=== PATIENT | female | born 1960 ===

== ENCOUNTER 2025-10-19 11:03 | Inpatient (IN) | payer OTHER, SELFPAY ==
[2025-10-19] VITALS (39 sets, daily range): BP systolic 93–123; BP diastolic 56–90; PULSE 76–175; RESP 18–38; TEMP 36.4–36.9; O2SAT 90–98; BMI 29.7
--- NOTE | ~2025-10-19 | XR_ITS ---
EXAMINATION: XR CHEST 2 VIEWS HISTORY: CP COMPARISON: There are no prior studies available for comparison. FINDINGS: PA and lateral views of the chest are submitted. There is confluent airspace opacity in the right lower lobe, concern for pneumonia. The left lung is clear. There is no pleural effusion, pneumothorax, or pulmonary vascular congestion. The heart is normal in size. The bones are intact. XR/XR chest 2V IMPRESSION: Right lower lobe pneumonia. Follow-up is recommended to document resolution. Electronically signed by: Bharat Santana MD 10/19/2025 11:59 AM [place]
--- NOTE | ~2025-10-19 | CT_ITS ---
EXAMINATION: CT ANGIOGRAM CHEST CLINICAL INFORMATION: Shortness of breath and hypoxia. Rule out pulmonary embolus. COMPARISON: No prior CT. Chest radiograph earlier same day. TECHNIQUE: Multiple axial images were obtained through the chest after the administration of 65 mL of Omnipaque 350 intravenous contrast. Extensive vascular post-processing including two-dimensional and three-dimensional reformatted images were created and reviewed on an independent workstation. This CT examination was performed using dose optimization techniques as appropriate, variously including the following: *Automated exposure control *Adjustment of mA and/or kV according to patient size (this includes techniques or standardized protocols for targeted exams where dose is matched to indication/reason for exam; i.e. extremities or head) *Use of iterative reconstruction technique FINDINGS: There is diagnostic opacification of the pulmonary arterial system with contrast. There is moderate motion degradation particularly on the inferior regions of the scan, creating artifact and mildly limiting the examination. VASCULAR: There is no definitive filling defect within the pulmonary arterial system to suggest pulmonary embolus. There are apparent likely artifactual defects present in the bilateral lower lobe subsegmental pulmonary arteries where there is extensive motion artifact. I feel these are attributable to artifact as opposed to actual pulmonary embolus. Main pulmonary artery is mildly prominent, measuring a diameter of 3.1 cm. The aorta is nonaneurysmal, normal in caliber and course, with mild atheromatous plaque. No acute aortic syndrome. The great vessels branch normally and are patent. The heart size is minimally enlarged. There is a tiny/trace pericardial effusion. There is moderate to heavy coronary calcification. There is no right heart strain pattern. No contrast reflux into the hepatic veins although there is mild reflux into the IVC, likely indicating increased right pulmonary pressures. LUNGS: / There is extensive consolidation throughout the right lower lobe in keeping with pneumonia. There are air bronchograms present. There is no effusion present. There is subtle patchy area bronchial opacities in the posterior left lower lobe also infectious in etiology. There is underlying mild to moderate centrilobular emphysema. There is minimal opacity in the right middle lobe. There is extensive small airway thickening, in keeping with bronchitis/inflammatory airways disease. There is no pneumothorax. There is no significant pulmonary nodule allowing for underlying respiratory motion artifact and underlying parenchymal disease. PLEURA: There is no pleural effusion. No pleural mass or thickening. MEDIASTINUM: The central airways are patent. Partial expiratory appearance of the trachea with partial inward bowing of the posterior membrane. There are mildly prominent lymph nodes within the central mediastinum, AP window region and pretracheal region, measuring up to 9 mm in short axis although there is preservation of fatty ghassan. These are likely reactive. There is a 1.1 cm subcarinal lymph node, and there is a 1.3 cm right hilar lymph node. The esophagus is diffusely mildly patulous. There is a moderate-sized paraesophageal hernia at the GE junction. AXILLA/CHEST WALL: No mass or abnormal lymph nodes are present. UPPER ABDOMEN: Imaged upper abdominal contents demonstrate a hypoattenuating 1.3 cm focus in segment 4A of the liver, entirely nonspecific. In addition there is an 11 mm hypoattenuating focus in segment 2, and in 11 mm hypoattenuating focus in segment 3. There is diffuse fatty infiltration of the liver. There has been a cholecystectomy. Moderate to large sized paraesophageal hiatus hernia. There is a 3.1 x 3.3 cm mass within the right adrenal, measuring approximately 35 Hounsfield units, nonspecific but statistically likely a lipid poor adenoma. OSSEOUS STRUCTURES: There is no suspicious lytic or blastic bone lesion identified. There are mild degenerative changes throughout the spine. CT/CT angio chest PE protocol IMPRESSION: 1. Exam limited by moderate respiratory motion artifact. There is no central or segmental pulmonary embolus. Subsegmental emboli in the lower lobes would be difficult to exclude although apparent filling defects appearance favor motion artifact on the imaging. 2. There is no aortic aneurysm. There is no acute aortic syndrome. 3. Extensive consolidation of the right lower lobe with air bronchograms. Subtle patchy peribronchial opacities also present in the right middle lobe, and posterior left lower lobe. Findings are in keeping with multifocal pneumonia. There is no effusion. 4. There is underlying mild to moderate emphysema. 5. There are mildly enlarged central mediastinal and right hilar lymph nodes, presumably reactive given the process within the right lung. 6. There is an indeterminant mass in the right adrenal gland measuring 3.1 x 3.3 cm, statistically an adenoma although indeterminate. Correlation with any prior imaging is recommended. Otherwise, recommend dedicated outpatient cross-sectional imaging when the patient is able. 7. There is diffuse fatty infiltration of the liver. There are 3 indeterminate liver lesions present measuring up to 1.3 cm, entirely nonspecific, again, correlation with any prior imaging is recommended. Otherwise, recommend dedicated outpatient cross-sectional imaging when the patient is able. 8. There are additional ancillary findings as discussed in the body of the report. Electronically signed by: Júnior Felipe MD 10/19/2025 02:25 PM [facility]
--- NOTE | 2025-10-19 11:05 | ECG_ITS ---
Test Reason : cp Blood Pressure : */* mmHG Vent. Rate : 113 BPM Atrial Rate : 113 BPM P-R Int : 122 ms QRS Dur : 90 ms QT Int : 312 ms P-R-T Axes : 63 -75 53 degrees QTcB Int : 427 ms Sinus tachycardia with Premature supraventricular complexes Left axis deviation Pulmonary disease pattern Abnormal ECG No previous ECGs available Referred By: Generic ED Physician Electronically Signed By: HECTOR SUAREZ MD
[2025-10-19 11:33] LABS: Hematocrit 42.6 % (37.0-47.0); Hemoglobin 14.0 g/dl (12.0-16.0); Mean Corpuscular HGB Conc 32.9 g/dl (31.0-35.0); Mean Corpuscular Hemoglobin 28.9 pg (27.0-33.0); Mean Corpuscular Volume 87.8 fL (80.0-98.0); NRBC Abs Auto 0.000 X10*3/uL (0.0-0.012); NRBC Pct Auto 0.0 /100WBC (0.0-0.2); Platelet Count 226 X10*3/uL (160-400); Red Blood Count 4.85 X10*6/uL (4.20-5.50); WBC ABN SCTR FOR CBC 1; White Blood Count 14.8 X10*3/uL (4.8-10.8)
--- NOTE | 2025-10-19 11:38 | ED_ITS ---
HPI - Chest Pain General Chief Complaint: Chest Pain Stated Complaint: chest pain Time Seen by Provider: 10/19/25 12:01 Source: patient Mode of arrival: ambulatory Limitations: no limitations History of Present Illness ED Provider: Dr. Borges HPI narrative: 64-year-old female history of emphysema presented to ER today for evaluation for increased shortness of breath and cough that started on Thursday. Patient has recently traveled from [place] it was here since Thursday. She has not complain of any fever however she states she has been having some diarrhea no abdominal pain. Recent cholecystectomy back in September. However she is having increased shortness of breath when she exerted herself. No chest pain Related Data Allergies Allergy/AdvReac Type Severity Reaction Status Date / Time Penicillins (PCN) Allergy Rash Verified 10/19/25 11:44 Review of Systems 2 Review of Systems: Pertinent review of systems as mentioned in HPI. All other system otherwise negative. [facility] Past Medical History [facility] Narrative: Emphysema, cholecystectomy Social History Social History Advance Directives: No Advance Directives Information Provided: No Physical Exam 2 Exam: Exam: General: Pleasant, no distress, interacting appropriately Head: Normacephalic, atraumatic ENT: oral mucosa moist, neck supple, no tracheal deviation Cardiovascular: Tachycardic rate, regular rhythm, no murmurs, rubbing, gallops Respiratory: Diminished lung sounds bilaterally does appear to be tachypneic Gastrointestinal: Soft, non distended, non tender, non guarding Extremities: No limb pain or swelling, no calf tenderness Neurological: Awake and alert, no facial droop noted Skin: Warm and dry Psychiatric: Appropriate mood and thoughts Vital Signs: Vital Signs: Last Vital Signs Temp 97.6 F 10/19/25 14:42 Pulse 121 H 10/19/25 15:14 Resp 26 H 10/19/25 14:42 BP 117/71 10/19/25 15:14 Pulse Ox 94 10/19/25 14:42 O2 Del Method Nasal Cannula 10/19/25 14:42 O2 Flow Rate 2 10/19/25 14:42 BMI result Body Mass Index 29.7 Course Course Course Narrative: This is an RME: Additional HPI, ROS, PE not included below will be deferred to primary provider. RME assessment and note performed by: Kasey Oreilly PA-C This is a 41-[id number] speaking female, with a hx of emphysema, and cardiac arrythmia who presents to the ER with concerns for SOB with ambulation, abdominal pain x 3 days. No nausea or vomiting. Some diarrhea. Reporting elevated heart rate. Recently traveled from [place], landed on thursday. On bumex, spirolactone. No fevers. Plan: Labs, CXR, viral swabs Medications Administered Discontinued Medications Generic Name Dose Route Start Last Admin Trade Name Freq PRN Reason Stop Dose Admin Albuterol Sulfate 2.5 mg/ 0 mg 10/19/25 12:54 10/19/25 12:59 Albuterol/Ipratropium 3 ml INHALE 10/19/25 12:55 5 dose ONCE ONE Administration Diltiazem HCl 15 mg 10/19/25 14:00 10/19/25 14:14 Diltiazem Hcl 50 Mg/10 Ml Vial IVPUSH 10/19/25 14:01 15 mg ONCE ONE Administration Diltiazem HCl 28 mg 10/19/25 14:28 10/19/25 14:34 Diltiazem Hcl 50 Mg/10 Ml Vial IVPUSH 10/19/25 14:29 28 mg ONCE ONE Administration Diltiazem HCl 60 mg 10/19/25 14:54 10/19/25 15:14 Diltiazem Hcl 60 Mg Tablet PO 10/19/25 14:55 60 mg ONCE ONE Administration Protocol Lactated Ringer's 1,000 mls @ 999 mls/hr 10/19/25 12:15 10/19/25 13:27 Lr IV 10/19/25 13:15 Infused .Q1H1M ROSENDA Infusion Levofloxacin 750 mg in 150 mls @ 100 mls/hr 10/19/25 12:19 10/19/25 13:56 Levaquin IV 10/19/25 13:48 Infused ONCE ONE Infusion Lactated Ringer's 1,000 mls @ 999 mls/hr 10/19/25 12:45 10/19/25 14:39 Lr IV 10/19/25 14:09 Not Given .Q1H1M ROSENDA Lactated Ringer's 2,358 mls @ 2,358 mls/hr 10/19/25 14:31 10/19/25 15:40 Lr 30 ml/kg infuse over 1 hr (2358 ml) 10/19/25 15:30 Infused IV Infusion .Q1H ONE Iohexol 100 ml 10/19/25 13:56 10/19/25 13:57 Iohexol 350 Mg/Ml 100 Ml Infus..Btl IV 10/19/25 13:57 65 ml ONCE ONE Administration Medical Decision Making Medical Decision Making [facility] Narrative: 64-year-old female history of emphysema presented hospital today for increased shortness of breath coughing since Thursday. On x-ray it appears that she does have right-sided pneumonia. She does have signs of leukocytosis with tachycardia. She is satting at 90% on room air. Nasal cannula applied to the patient. Blood pressure stable at this time. Patient does meet sepsis criteria. We will activate sepsis for the patient. She does have allergy to penicillin so IV Levaquin will be ordered for the patient. Given her recent travel to [place] and shortness of breath and tachycardia. We will plan to obtain a CTA chest to rule out PE. A bolus IV fluid will be initiated for the patient No signs of pulmonary embolism identified on CTA of the chest. Chest x-ray did show right-sided pneumonia. Patient was ambulated in the ER here and went into AFib RVR. Give patient 2 IV pushes of diltiazem. Kaveh this with p.o. diltiazem 60 mg. Heart rate maintaining no of 120s. Patient will be admitted to the hospital. She does have leukocytosis with bandemia. Elevated lactic acid as well. Patient is unable to specify exactly what cardiac arrhythmia she has. Suspect this is likely AFib. The patient will be admitted to the hospital. Differential Diagnosis Differential Diagnoses: The differential diagnosis associated with the presentation includes Sepsis, COPD exacerbation, pneumonia, PE Lab Data [facility] Lab Attestation statement: I reviewed the patient's lab results. 10/19/25 11:22 10/19/25 11:22 Labs: Lab Results 10/19/25 10/19/25 10/19/25 Range/Units 11:21 11:22 12:21 WBC 14.8 H (4.8-10.8) X10*3/uL RBC 4.85 (4.20-5.50) X10*6/uL Hgb 14.0 (12.0-16.0) g/dl Hct 42.6 (37.0-47.0) % MCV 87.8 (80.0-98.0) fL MCH 28.9 (27.0-33.0) pg MCHC 32.9 (31.0-35.0) g/dl RDW 14.4 (11.0-16.0) % Plt Count 226 (160-400) X10*3/uL MPV 10.1 (9.4-12.3) fL Immature Gran % (Auto) Cancelled Neut % (Auto) Cancelled Lymph % (Auto) Cancelled [place] % (Auto) Cancelled Eos % (Auto) Cancelled Baso % (Auto) Cancelled Lymph # (Auto) Cancelled [place] # (Auto) Cancelled Eos # (Auto) Cancelled Baso # (Auto) Cancelled Abs Immat Gran (auto) Cancelled Absolute Neuts (auto) Cancelled Absolute Nucleated RBC 0.000 (0.0-0.012) X10*3/uL Nucleated RBC % (auto) 0.0 (0.0-0.2) /100WBC Neutrophils % (Manual) 64 (45-73) % Band Neutrophils % 10 H (3-5) % Lymphocytes % (Manual) 20 (20-40) % Atypical Lymphs % (Man) 2 (0-6) % Monocytes % (Manual) 4 (2-11) % Abs Neuts (Manual) 11.0 H (2.0-8.3) X10*3/uL Lymphocytes # (Manual) 3.0 (1.2-4.9) X10*3/uL Atyp Lymphs # (Manual) 0.3 x10*3/uL Monocytes # (Manual) 0.6 (0.1-1.2) X10*3/uL Smudge Cells PRESENT Toxic Vacuolation PRESENT Platelet Estimate NORMAL (NORMAL) Large Platelets PRESENT Giant Platelets PRESENT Plt Morphology Comment NOTED RBC Morphology NORMAL Polychromasia 1+ (0-2) /OIF [place] Bodies PRESENT Lazaro Cells 1+ (0-2) /OIF Hold Blue Top SEE NOTE Sodium 135 (135-145) mmol/L Potassium 4.3 (3.3-5.1) mmol/L Chloride 102 (96-108) mmol/L Carbon Dioxide 23 (22-29) mmol/L Anion Gap 14 (12-20) BUN 16 (9-16) mg/dL Creatinine 0.69 (0.5-1.4) mg/dL Estim Creat Clear Calc 81.3 Estimated GFR > 60 Random Glucose 115 (60-115) mg/dL Lactic Acid 2.3 H* (0.5-2.0) mmol/L Lactic Acid F/U @ 2Hr (0.5-2.0) mmol/L Calcium 9.9 (8.4-10.2) mg/dL Total Bilirubin 0.7 (0.0-1.0) mg/dL Direct Bilirubin 0.2 (0.0-0.5) mg/dL AST 29 (5-31) U/L ALT 12 (0-31) U/L Alkaline Phosphatase 83 (39-117) U/L Troponin I High Sens 2.9 (<3.5-17.0) ng/L Total Protein 6.9 (6.5-8.0) g/dL Albumin 3.6 (3.5-5.0) g/dL Influenza Type A (PCR) (Negative) Influenza Type B (PCR) (Negative) RSV RNA Qual (PCR) (Negative) SARS-CoV-2 RNA (RT-PCR) (Negative) 10/19/25 10/19/25 Range/Units 12:24 15:08 WBC (4.8-10.8) X10*3/uL RBC (4.20-5.50) X10*6/uL Hgb (12.0-16.0) g/dl Hct (37.0-47.0) % MCV (80.0-98.0) fL MCH (27.0-33.0) pg MCHC (31.0-35.0) g/dl RDW (11.0-16.0) % Plt Count (160-400) X10*3/uL MPV (9.4-12.3) fL Immature Gran % (Auto) Neut % (Auto) Lymph % (Auto) [place] % (Auto) Eos % (Auto) Baso % (Auto) Lymph # (Auto) [place] # (Auto) Eos # (Auto) Baso # (Auto) Abs Immat Gran (auto) Absolute Neuts (auto) Absolute Nucleated RBC (0.0-0.012) X10*3/uL Nucleated RBC % (auto) (0.0-0.2) /100WBC Neutrophils % (Manual) (45-73) % Band Neutrophils % (3-5) % Lymphocytes % (Manual) (20-40) % Atypical Lymphs % (Man) (0-6) % Monocytes % (Manual) (2-11) % Abs Neuts (Manual) (2.0-8.3) X10*3/uL Lymphocytes # (Manual) (1.2-4.9) X10*3/uL Atyp Lymphs # (Manual) x10*3/uL Monocytes # (Manual) (0.1-1.2) X10*3/uL Smudge Cells Toxic Vacuolation Platelet Estimate (NORMAL) Large Platelets Giant Platelets Plt Morphology Comment RBC Morphology Polychromasia /OIF [place] Bodies Lazaro Cells /OIF Hold Blue Top Sodium (135-145) mmol/L Potassium (3.3-5.1) mmol/L Chloride (96-108) mmol/L Carbon Dioxide (22-29) mmol/L Anion Gap (12-20) BUN (9-16) mg/dL Creatinine (0.5-1.4) mg/dL Estim Creat Clear Calc Estimated GFR Random Glucose (60-115) mg/dL Lactic Acid (0.5-2.0) mmol/L Lactic Acid F/U @ 2Hr 4.3 H* (0.5-2.0) mmol/L Calcium (8.4-10.2) mg/dL Total Bilirubin (0.0-1.0) mg/dL Direct Bilirubin (0.0-0.5) mg/dL AST (5-31) U/L ALT (0-31) U/L Alkaline Phosphatase (39-117) U/L Troponin I High Sens (<3.5-17.0) ng/L Total Protein (6.5-8.0) g/dL Albumin (3.5-5.0) g/dL Influenza Type A (PCR) NEGATIVE (Negative) Influenza Type B (PCR) NEGATIVE (Negative) RSV RNA Qual (PCR) NEGATIVE (Negative) SARS-CoV-2 RNA (RT-PCR) NEGATIVE (Negative) Independent Interpretation I performed an independent interpretation of an: Plain X-Ray Radiology Impression Discussion of test interpretation with radiology: I have reviewed the radiologist's reading. Chronic Conditions Emphysema Critical Care Time Critical Care Time Critical Care Time: Yes Total Critical Care Time: 40 Attestation: Time is exclusive of separately billable procedures. Time includes: direct patient care, patient reassessment, coordination of patient care, interpretation of data (laboratory data, pulse oximetry, arterial blood gases and chest xrays), review of patient's medical records, medical consultation and documentation of patient care. Procedures excluded from critical care time: central intravenous line placement and electrocardiography. Discharge Plan Discharge Clinical Impression: Sepsis, Pneumonia, Atrial fibrillation with RVR Patient Disposition: Admitted As Inpatient Print Language: Kuwaiti
[2025-10-19 11:53] LABS: Anion Gap 14 (12-20); Blood Urea Nitrogen 16 mg/dL (9-16); Calcium 9.9 mg/dL (8.4-10.2); Carbon Dioxide 23 mmol/L (22-29); Chloride 102 mmol/L (96-108); Creatinine Clr Calc Pharmacy 81.3; Estimated Glomerular Filt Rate > 60; Potassium 4.3 mmol/L (3.3-5.1); Sodium 135 mmol/L (135-145)
[2025-10-19 11:58] LABS: Troponin-I High Sensitivity 2.9 ng/L (<3.5-17.0)
[2025-10-19] MEDS: Lactated Ringers 1,000 ML 999 ML IV ×2 (12:26→13:17)
[2025-10-19 12:43] LABS: Neutrophils Percent Manual 64 % (45-73)
[2025-10-19 12:47] LABS: Atypical Lymph Absolute Manual 0.3 x10*3/uL; Atypical Lymphs Percent Manual 2 % (0-6); Band Neutrophils Percent 10 % (3-5); Lymphocytes Absolute Manual 3.0 X10*3/uL (1.2-4.9); Lymphocytes Percent Manual 20 % (20-40); Monocytes Absolute Manual 0.6 X10*3/uL (0.1-1.2); Monocytes Percent Manual 4 % (2-11); Neutrophils Absolute Manual 11.0 X10*3/uL (2.0-8.3)
[2025-10-19 12:48] LABS: Toxic Vacuolation PRESENT
[2025-10-19 12:49] LABS: Alanine Aminotransferase 12 U/L (0-31); Albumin Level 3.6 g/dL (3.5-5.0); Alkaline Phosphatase 83 U/L (39-117); Aspartate Amino Transferase 29 U/L (5-31); Polychromasia 1+ (0-2) /OIF; Smudge Cells PRESENT; Total Protein 6.9 g/dL (6.5-8.0)
[2025-10-19 12:50] LABS: Burr Cells 1+ (0-2) /OIF
[2025-10-19 12:51] LABS: Large Platelet PRESENT; RBC Morphology NORMAL
[2025-10-19] MEDS: Albuterol Sulfate 2.5 MG, Albuterol/Iprat 2.5/0.5MG 3 ML 3 ML INHALE (12:59)
[2025-10-19 13:15] LABS: Resp Syncy Virus RNA Qual PCR NEGATIVE (Negative); SARS COV2 PCR INHOUSE NEGATIVE (Negative)
--- NOTE | 2025-10-19 13:42 | ECG_ITS ---
Test Reason : TACHYCARDIA Blood Pressure : */* mmHG Vent. Rate : 156 BPM Atrial Rate : 156 BPM P-R Int : 122 ms QRS Dur : 84 ms QT Int : 272 ms P-R-T Axes : 43 -86 44 degrees QTcB Int : 438 ms Sinus tachycardia with frequent Premature supraventricular complexes Left axis deviation Low voltage QRS Possible Lateral infarct , age undetermined Inferior infarct , age undetermined Abnormal ECG When compared with ECG of 19-Oct-2025 11:09, Borderline criteria for Lateral infarct are now Present No significant change was found Referred By: Coleen Borges Electronically Signed By: HECTOR SUAREZ MD
[2025-10-19] MEDS: iohexoL 350 MG/ML 100 ML INFUS..BTL IV (13:57)
--- NOTE | 2025-10-19 14:02 | PC.NURSE ---
patient received updraft, during which patient hr had noted to become tachy 110's-140's. patient ambulated to imaging and bathroom, upon returning to bed noted to be 120's-190's. repeat EKG obtained. second IV being placed, plan for cardizem IVpush.
[2025-10-19 14:28] LABS: Reflex Lactate? Lactic Acid Added
--- NOTE | 2025-10-19 14:40 | PC.NURSE ---
hr noted to be between 90-100 at this time s/p second cardizem administration
[2025-10-19 15:40] LABS: ~Lactic Acid-LAB USE ONLY 4.3 mmol/L (0.5-2.0)
--- NOTE | 2025-10-19 16:52 | P.HPHOSP_ITS ---
History of Present Illness Date of Service: 10/19/25 Attending physician on admission: Jay Torres Chief Complaint: shortness of breath This is a 64-year-old female visiting from [place] who presents to the emergency department with shortness of breath. Patient is Kiswahili speaking and history was obtained with the use of the [employer] trans router. Patient reports she came from [place] to visit this past Thursday. She has been having shortness of breath for the past several days. She thinks that her grandchild may have the flu. She has been wheezing and reports a cough productive of dark phlegm. She has been using her inhaler with no significant improvement in her symptoms. She reports increase in fatigue but denies any associated fever or chills. In the emergency department she was tachycardic and tachypneic. Lab work was significant for elevated white blood cell count and lactic acidosis. CTA showed evidence of multifocal pneumonia but no evidence of pulmonary embolism. She was noted to become significantly tachycardic and received multiple doses of IV Cardizem. During her episodes of tachycardia she was reportedly fatigued and dizzy. Her dizziness has since resolved, she denies chest pain or palpitations at this time. She was also treated with IV antibiotics and IVF will be admitted for further management. Review of Systems 2 Review of Systems: Yes all other systems are reviewed and are negative Constitutional: Constitutional: Denies chills and Denies fever(s) [facility] Medical History (Updated 10/19/25 @ 17:16 by DONNY Perez) COPD (chronic obstructive pulmonary disease) Social History Patient Tobacco Use Status: Tobacco use Unknown Advance Directives: No Advance Directives Information Provided: No Meds Allergies Allergy/AdvReac Type Severity Reaction Status Date / Time Penicillins (PCN) Allergy Rash Verified 10/19/25 11:44 Active Medications: Current Medications Acetaminophen (Acetaminophen 325 Mg Tablet) 650 mg PO Q6H PRN PRN Reason: Pain, Mild 1-3,fever,headache Calcium Carbonate (Calcium Carbonate 750 Mg Tab.Chew) 750 mg PO Q4H PRN PRN Reason: Heartburn Enoxaparin Sodium (Enoxaparin Sodium 40 Mg/0.4 Ml Syringe) 40 mg SUBCUT Q24H ROSENDA Magnesium Hydroxide (Milk Of Magnesia 30 Ml Oral.Susp) 30 ml PO DAILY PRN PRN Reason: Constipation Melatonin (Melatonin 3 Mg Tablet) 6 mg PO BEDTIME PRN PRN Reason: Insomnia Sodium Chloride (0.9 % Sodium Chloride Flush 3 Ml Syringe) 3 ml IVFLUSH QSHIFT [facility] Home Medications ?Medication ?Instructions ?Recorded ?Confirmed ?Last Taken ?Type bisoprolol fumarate 2.5 mg tablet 2.5 mg PO DAILY 10/0910/19/25 Unknown History tiotropium 2.5 mcg-olodaterol 2.5 2 puff inhalation DA EMILY 10/19/25 10/19/25 Unknown History mcg/actuation mist for inhalation (Stiolto Respimat) Physical Exam 2 Vital Signs and Narrative: Vital Signs: Last Vital Signs Temp 97.6 F 10/19/25 14:42 Pulse 113 H 10/19/25 15:45 Resp 22 H 10/19/25 15:45 BP 117/66 10/19/25 16:25 Pulse Ox 95 10/19/25 15:45 O2 Del Method Nasal Cannula 10/19/25 15:45 O2 Flow Rate 2 10/19/25 15:45 BMI result Body Mass Index 29.7 Const: General: cooperative, comfortable, alert and awake Nutritional Appearance: average body habitus Orientation/consciousness: patient oriented x3 Resp: Other: b/l wheeze; tachypnea Effort & Inspection: normal respiratory effort, able to speak in complete sentences and no use of accessory muscles Cardio: Rate: tachycardic GI: Inspection: No distended Palpation (GI): Soft to palpation Neuro: General: patient oriented x3, moves all extremities and CN's II-XI intact bilaterally Extrem: General: Yes pedal edema Results Labs 10/20/25 03:30 10/20/25 03:30 Labs: Laboratory Results - last 24 hr 10/19/25 10/19/25 10/19/25 11:21 11:22 12:21 MCV 87.8 MCH 28.9 MCHC 32.9 RDW 14.4 Plt Count 226 MPV 10.1 Immature Gran % (Auto) Cancelled Neut % (Auto) Cancelled Lymph % (Auto) Cancelled [place] % (Auto) Cancelled Eos % (Auto) Cancelled Baso % (Auto) Cancelled Lymph # (Auto) Cancelled [place] # (Auto) Cancelled Eos # (Auto) Cancelled Baso # (Auto) Cancelled Abs Immat Gran (auto) Cancelled Absolute Neuts (auto) Cancelled Absolute Nucleated RBC 0.000 Nucleated RBC % (auto) 0.0 Neutrophils % (Manual) 64 Band Neutrophils % 10 H Lymphocytes % (Manual) 20 Atypical Lymphs % (Man) 2 Monocytes % (Manual) 4 Abs Neuts (Manual) 11.0 H Lymphocytes # (Manual) 3.0 Atyp Lymphs # (Manual) 0.3 Monocytes # (Manual) 0.6 Smudge Cells PRESENT Toxic Vacuolation PRESENT Platelet Estimate NORMAL Large Platelets PRESENT Giant Platelets PRESENT Plt Morphology Comment NOTED RBC Morphology NORMAL Polychromasia 1+ (0-2) [place] Bodies PRESENT Lazaro Cells 1+ (0-2) Hold Blue Top SEE NOTE Anion Gap 14 Estim Creat Clear Calc 81.3 Estimated GFR > 60 Random Glucose 115 Lactic Acid 2.3 H* Lactic Acid F/U @ 2Hr Calcium 9.9 Total Bilirubin 0.7 Direct Bilirubin 0.2 AST 29 ALT 12 Alkaline Phosphatase 83 Troponin I High Sens 2.9 Total Protein 6.9 Albumin 3.6 Influenza Type A (PCR) Influenza Type B (PCR) RSV RNA Qual (PCR) SARS-CoV-2 RNA (RT-PCR) 10/19/25 10/19/25 12:24 15:08 MCV MCH MCHC RDW Plt Count MPV Immature Gran % (Auto) Neut % (Auto) Lymph % (Auto) [place] % (Auto) Eos % (Auto) Baso % (Auto) Lymph # (Auto) [place] # (Auto) Eos # (Auto) Baso # (Auto) Abs Immat Gran (auto) Absolute Neuts (auto) Absolute Nucleated RBC Nucleated RBC % (auto) Neutrophils % (Manual) Band Neutrophils % Lymphocytes % (Manual) Atypical Lymphs % (Man) Monocytes % (Manual) Abs Neuts (Manual) Lymphocytes # (Manual) Atyp Lymphs # (Manual) Monocytes # (Manual) Smudge Cells Toxic Vacuolation Platelet Estimate Large Platelets Giant Platelets Plt Morphology Comment RBC Morphology Polychromasia [place] Bodies Lazaro Cells Hold Blue Top Anion Gap Estim Creat Clear Calc Estimated GFR Random Glucose Lactic Acid Lactic Acid F/U @ 2Hr 4.3 H* Calcium Total Bilirubin Direct Bilirubin AST ALT Alkaline Phosphatase Troponin I High Sens Total Protein Albumin Influenza Type A (PCR) NEGATIVE Influenza Type B (PCR) NEGATIVE RSV RNA Qual (PCR) NEGATIVE SARS-CoV-2 RNA (RT-PCR) NEGATIVE Imaging Radiologist's Impressions: Impressions Chest X-Ray 10/19/25 11:53 IMPRESSION: Right lower lobe pneumonia. Follow-up is recommended to document resolution. Electronically signed by: Bharat Santana MD 10/19/2025 11:59 AM EST RP Chest CTA 10/19/25 13:28 IMPRESSION: 1. Exam limited by moderate respiratory motion artifact. There is no central or segmental pulmonary embolus. Subsegmental emboli in the lower lobes would be difficult to exclude although apparent filling defects appearance favor motion artifact on the imaging. 2. There is no aortic aneurysm. There is no acute aortic syndrome. 3. Extensive consolidation of the right lower lobe with air bronchograms. Subtle patchy peribronchial opacities also present in the right middle lobe, and posterior left lower lobe. Findings are in keeping with multifocal pneumonia. There is no effusion. 4. There is underlying mild to moderate emphysema. 5. There are mildly enlarged central mediastinal and right hilar lymph nodes, presumably reactive given the process within the right lung. 6. There is an indeterminant mass in the right adrenal gland measuring 3.1 x 3.3 cm, statistically an adenoma although indeterminate. Correlation with any prior imaging is recommended. Otherwise, recommend dedicated outpatient cross-sectional imaging when the patient is able. 7. There is diffuse fatty infiltration of the liver. There are 3 indeterminate liver lesions present measuring up to 1.3 cm, entirely nonspecific, again, correlation with any prior imaging is recommended. Otherwise, recommend dedicated outpatient cross-sectional imaging when the patient is able. 8. There are additional ancillary findings as discussed in the body of the report. Electronically signed by: Júnior Felipe MD 10/19/2025 02:25 PM EST RP Assessment and Plan (1) Pneumonia: Qualifiers: Laterality: right Lung location: lower lobe of lung Pneumonia type: d ue to unspecified organism Qualified Code(s): J18.9 - Pneumonia, unspecified organism Status: Acute Plan This is a 64-year-old female with a history of COPD and unspecified arrhythmia visiting from [place] who presents to the emergency department with shortness of breath found to have pneumonia Sepsis due to Multifocal pneumonia received 33cc/kg fluid bolus lactic acid trending up possibly due to breathing treatments and tachycardia IV Levaquin follow blood cultures acute exacerbation of COPD IV steroids prn xopenex supplemental oxygen as needed to keep o2 saturation above 90% tachcycardia EKG not c/w atrial fibrillation seems like sinus tachy likely due to underlying breathing treatment and infection has h/o arrhthmia and takes what seems to be a BB at baseline does not use blood thinner at baseline monitor on telemetery, if any episodes of afib are observed can consider obtaining an echo dvt ppx - lovenox Patient will likely require 2 midnight stay in the hospital for management of COPD exacerbation, multifocal pneumonia requiring IV antibiotics and close monitoring of respiratory status Quality Stroke Does the patient have a stroke diagnosis?: No VTE Prior VTE?: No VTE Risk Level:: Medical - moderate - high VTE Device Contraindication: N/A - Device Ordered VTE Drug Contraindication: N/A - Med Ordered
[2025-10-19 17:12] LABS: Reflex Lactate? 2 Y
[2025-10-19 17:54] LABS: ~Lactic Acid-LAB USE ONLY 2.5 mmol/L (0.5-2.0)
[2025-10-19 18:02] LABS: Cancel Lactic Acid Canceled
--- NOTE | 2025-10-19 20:07 | PC.NURSE ---
assumed care of pt, pt found alert in bed on nasal cannula w/ a rapid HR, MD notified of HR. VS taken and as noted awaiting new orders.
[2025-10-19 20:39] LABS: Magnesium 1.9 mg/dL (1.6-2.6)
--- NOTE | 2025-10-19 20:42 | PC.NURSE ---
Dilt drip started at this time per mar
--- NOTE | 2025-10-19 21:24 | PHA.MEDREC ---
Pharmacy Consult ? Medication Reconciliation Pharmacy has completed the medication reconciliation. [place] [employer] retirement actuary needed, family member at bedside with a list of medications from a pharmacy source that needed to be translated, allowed me to take a picture for confirmation. He said she only takes two medications, her inhaler and her beta shakeel
--- NOTE | 2025-10-19 21:44 | PM.EVENT ---
Event Note Date of Service: 10/20/25 Event Note: Pt in AFIB RVR, 140's worse with exertion. Pt has received cardizem IVP X2 and now starting IV infusion. BP stable. LA elevated, starting fluids. Gave one dose of 2.5 lopressor with good effect, currently AFIB, rate 99. Periwick will be placed to reduce need to ambulate that promotes RVR. MG 1.9, 1 gm of mg administered to keep MG above 2.0. TSH pending. Pt started on weight based lovenox for AC. 0450 Pt currently in NSR on cardizem infusion at 5 mls per hour. Pt has fared well on infusion, will allow to continue until seen by Cardiology. Consult ordered and echo requested. Time Spent With Patient Time: Total time managing care of this patient today ____ minutes.
[2025-10-19 22:21] LABS: Appearance Urine Clear; Glucose Urine UA Negative (Negative); PH 6.0 (5.0-9.0); Specific Gravity - Urine 1.015 (1.005-1.025); UMIC TRIGGER UA YES
--- NOTE | 2025-10-19 22:28 | PC.NURSE ---
pt assisted to bedside commode, voided 500ml yellow urine, sample obtained.
--- NOTE | 2025-10-19 23:13 | PC.NURSE ---
pt heart rate noted to be maintaining below 100bpm, BATCH ROOM TECHNICIAN Janey aware and states to keep pt on dilt drip at this time at 5mg/hr.
[2025-10-19 23:25] LABS: Hematocrit 37.0 % (37.0-47.0); Hemoglobin 12.2 g/dl (12.0-16.0); Mean Corpuscular HGB Conc 33.0 g/dl (31.0-35.0); Mean Corpuscular Hemoglobin 28.8 pg (27.0-33.0); Mean Corpuscular Volume 87.5 fL (80.0-98.0); NRBC Abs Auto 0.000 X10*3/uL (0.0-0.012); NRBC Pct Auto 0.0 /100WBC (0.0-0.2); Platelet Count 237 X10*3/uL (160-400); Red Blood Count 4.23 X10*6/uL (4.20-5.50); White Blood Count 13.5 X10*3/uL (4.8-10.8)
[2025-10-19 23:36] LABS: Blood Urea Nitrogen 11 mg/dL (9-16); Creatinine Clr Calc Pharmacy 98.4; Estimated Glomerular Filt Rate > 60
[2025-10-20] VITALS (12 sets, daily range): BP systolic 102–161; BP diastolic 68–90; PULSE 71–105; RESP 18–22; TEMP 36.3–37; O2SAT 94–99
--- NOTE | 2025-10-20 | ECG_ITS ---
Test Reason : RHYTHM CHANGE Blood Pressure : */* mmHG Vent. Rate : 85 BPM Atrial Rate : 85 BPM P-R Int : 142 ms QRS Dur : 92 ms QT Int : 356 ms P-R-T Axes : 65 -42 40 degrees QTcB Int : 423 ms Sinus rhythm with Premature atrial complexes Left axis deviation Low voltage QRS Incomplete right bundle branch block Abnormal ECG When compared with ECG of 19-Oct-2025 13:46, Vent. rate has decreased by 71 bpm Borderline criteria for Lateral infarct are no longer Present Referred By: Janey Simon Electronically Signed By: HECTOR SUAREZ MD
[2025-10-20 03:54] LABS: Hematocrit 36.1 % (37.0-47.0); Hemoglobin 11.8 g/dl (12.0-16.0); Mean Corpuscular HGB Conc 32.7 g/dl (31.0-35.0); Mean Corpuscular Hemoglobin 28.6 pg (27.0-33.0); Mean Corpuscular Volume 87.6 fL (80.0-98.0); NRBC Abs Auto 0.000 X10*3/uL (0.0-0.012); NRBC Pct Auto 0.0 /100WBC (0.0-0.2); Platelet Count 247 X10*3/uL (160-400); Red Blood Count 4.12 X10*6/uL (4.20-5.50); WBC ABN SCTR FOR CBC 1
[2025-10-20 04:13] LABS: Anion Gap 12 (12-20); Blood Urea Nitrogen 11 mg/dL (9-16); Calcium 9.0 mg/dL (8.4-10.2); Carbon Dioxide 22 mmol/L (22-29); Chloride 108 mmol/L (96-108); Creatinine Clr Calc Pharmacy 105.9; Estimated Glomerular Filt Rate > 60; Potassium 3.7 mmol/L (3.3-5.1); Sodium 138 mmol/L (135-145)
--- NOTE | 2025-10-20 04:54 | PC.NURSE ---
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
[2025-10-20 05:26] LABS: Band Neutrophils Percent 3 % (3-5); Lymphocytes Percent Manual 1 % (20-40); Monocytes Percent Manual 2 % (2-11); Neutrophils Percent Manual 94 % (45-73)
[2025-10-20 05:27] LABS: Burr Cells 3+ (>5) /OIF; Lymphocytes Absolute Manual 0.1 X10*3/uL (1.2-4.9); Monocytes Absolute Manual 0.3 X10*3/uL (0.1-1.2); Neutrophils Absolute Manual 12.1 X10*3/uL (2.0-8.3); RBC Morphology NOTED; Toxic Granulation PRESENT; White Blood Count 12.5 X10*3/uL (4.8-10.8)
--- NOTE | 2025-10-20 07:00 | CA_ITS ---
Transthoracic Echocardiogram Patient (Last, First, Middle): Lucy Beebe, Gender: F Date of : 1960 Age: 64 Procedure Date: 10/20/2025 Procedure Type: Transthoracic Echocardiogram Location: ER Height: 162.56 cm Weight: 78.47 kg BSA: 1.84 m2 Heart Rate: 81 bpm BP: 118 / 82 mmHg Manager Non Profit: TO Referring MD: Janey Simon [facility] Child Development Specialist: Neal Menchaca MD Symptoms: AFIB RVR Study Quality: Adequate w contrast ECG Rhythm: Sinus with PACs Conclusions: - 1. Technically limited study 2. Mildly reduced LV ejection fraction 45-50% with impaired relaxation filling pattern 3. Cardiac valvular Dopplers within normal limits Findings Procedure Information Contrast agent, definity, is being given per protocol without apparent complications. Left Ventricle Normal left ventricular cavity size. There is normal left ventricular wall thickness. The left ventricular systolic function is mildly decreased. The visually estimated ejection fraction is between 45-50%. Spectral Doppler is indicative of an impaired relaxation filling pattern. E/E prime ratio is between 8 and 15 consistent with indeterminate filling pressures. Right Ventricle Normal right ventricular cavity size and systolic function. Atria The left atrium is likely dilated. Interatrial shunt cannot be excluded. The right atrium was not well visualized. Aortic Valve The aortic valve was not well visualized. There is no aortic valve stenosis. There is no aortic valve regurgitation. Mitral Valve Likely normal mitral valve structure and function. There is trace mitral valve regurgitation. There is no mitral valve stenosis. Pulmonic Valve The pulmonic valve was not well visualized. Tricuspid Valve The tricuspid valve was not well visualized. Tricuspid regurgitation envelope is inadequate for calculation of right ventricular systolic pressure. Indeterminate right atrial pressure. Great Vessels The aorta was not well visualized. The pulmonary artery was not well visualized. Venous The inferior vena cava was not well visualized. Pericardium/Pleural The pericardium was not well visualized. Prior Study Comparison No prior study available for comparison. Measurements 2D Linear Measurements IVSd: 1.05 0.6-0.9/0.6-1.0 cm LVIDd: 4.66 3.9-5.3/4.2-5.9 cm LVIDd Index: 2.53 2.4-3.2/2.2-3.1 cm/m2 LVIDs: 3.54 2.0-3.6 cm LVPWd: 0.90 0.7-1.1 cm LV Mass: 194.43 67-162/88-224 g LV Mass Index: 105.67 43-95/49-115 g/m2 LVOT Diam: 2.50 3.0+(-)1.3 cm 2D Systolic Function EF 4C: 51.70 >55% EF 2C: 43.50 >55% EF BiP: 46.50 >55% Mitral Valve MV Pk E: 0.64 MV PK A: 0.48 MV Decel Time: 160.00 E/A: 1.30 E'Lateral: 12.70 E'Medial: 5.87 E/E' Med: 10.90 E/E' Lat: 5.00 PHT: 47.00 MVA PHT: 4.68 Decel [place]: 4.00 Aortic Valve AoV Pk Crispin: 1.28 AoV Mn Crispin: 0.93 AoV VTI: 0.23 AoV Pk Grad: 7.00 Aov Mn Grad: 4.00 BIANCA Cont.VTI: 4.50 LVOT LVOT Pk Crispin: 1.06 LVOT Mn Crispin: 0.71 LVOT VTI: 0.21 LVOT Pk Grad: 4.00 LVOT Mn Grad: 2.00 LVOT Diam: 2.50 LVOT Area: 4.91 Diastolic Function MV Pk E: 0.64 MV Pk A: 0.48 E/A: 1.30 E'Medial: 5.87 E/E' Med: 10.90 E' Laterial: 12.70 E/E' Lat: 5.00 Right Ventricle TAPSE (mm): 17.50 TVS' Crispin: 15.40 Great Vessels Aorta Sinus of Valsalva: 3.47 2.0-3.5 cm Ao Asc: 3.50 2.1-3.4 cm Updated in Other Vendor System with Status of Final Neal Menchaca MD electronically signed on 10/20/2025 4:06:41 PM with status of Final
[2025-10-20 07:57] LABS: Magnesium 2.0 mg/dL (1.6-2.6)
[2025-10-20] MEDS: Potassium Chloride ER 20 MEQ TAB.ER.PRT PO (08:42)
--- NOTE | 2025-10-20 09:18 | P.PNIM_ITS ---
Subjective Subjective Date of Service: 10/20/25 Interval History: gram positive bactermia pneumonia Review of Systems sob and cough similar Review of Systems: Yes all other systems are reviewed and are negative Physical Exam 2 Exam: Exam: Appearance: Alert.? Oriented X3.? cvs: rrr, [id number] . res: air entry diminshed . abd: no rebound or guarding ,nt, bs present. ext pulses present , no cyanosis . neuro: axo3 , nonfocal. Vital Signs: Vital Signs: Last Vital Signs Temp 97.4 F 10/20/25 04:02 Pulse 95 10/20/25 08:46 Resp 20 10/20/25 08:09 BP 161/75 H 10/20/25 08:46 Pulse Ox 95 10/20/25 04:02 O2 Del Method Nasal Cannula 10/20/25 04:02 O2 Flow Rate 2 10/20/25 04:02 BMI result Body Mass Index 29.7 Objective Data Active Medications Acetaminophen (Acetaminophen 325 Mg Tablet) 650 mg PO Q6H PRN PRN Reason: Pain, Mild 1-3,fever,headache Bisoprolol Fumarate (Bisoprolol Fumarate 5 Mg Tablet) 2.5 mg PO DAILY [facility] Calcium Carbonate (Calcium Carbonate 750 Mg Tab.Chew) 750 mg PO Q4H PRN PRN Reason: Heartburn Enoxaparin Sodium (Enoxaparin Sodium 40 Mg/0.4 Ml Syringe) 40 mg SUBCUT Q24H [facility] Last Admin: 10/19/25 18:46 Dose: 40 mg Documented By: CHAU Guaifenesin/Dextromethorphan (Guaifenesin Dm 100/10/5 Ml 5 Ml Syrup) 5 ml PO Q6H PRN PRN Reason: Cough Levofloxacin (Levaquin) 750 mg in 150 mls @ 100 mls/hr IV Q24H [facility] Sodium Chloride (Ns) 1,000 mls @ 100 mls/hr IVCONT .Q10H [facility] Last Admin: 10/20/25 08:42 Dose: 100 mls/hr Documented By: LEVON Levalbuterol HCl (Levalbuterol Hcl 1.25 Mg/3 Ml Vial.Neb) 1.25 mg INHALE Q4H PRN PRN Reason: Shortness of Breath/Wheezing Levalbuterol HCl (Levalbuterol Hcl 1.25 Mg/3 Ml Vial.Neb) 1.25 mg INHALE RTID [facility] Last Admin: 10/20/25 08:07 Dose: 1.25 mg Documented By: RAYNE Magnesium Hydroxide (Milk Of Magnesia 30 Ml Oral.Susp) 30 ml PO DAILY PRN PRN Reason: Constipation Melatonin (Melatonin 3 Mg Tablet) 6 mg PO BEDTIME PRN PRN Reason: Insomnia Methylprednisolone Sodium Succinate (Methylprednisolone Sod Succ 40 Mg/Ml Vial) 40 mg IVPUSH Q8H [facility] Last Admin: 10/20/25 08:42 Dose: 40 mg Documented By: LEVON Non-Formulary Medication (Tiotropium-Olodaterol [Stiolto Respimat]) 2 puff INHALE DAILY [facility] Sodium Chloride (0.9 % Sodium Chloride Flush 3 Ml Syringe) 3 ml IVFLUSH QSHIFT [facility] Last Admin: 10/20/25 07:46 Dose: Not Given Documented By: LEVON Non-Admin Reason: IV Running Labs 10/20/25 03:30 10/20/25 03:30 Labs: Laboratory Results - last 24 hr 10/19/25 10/19/25 10/19/25 11:21 11:22 12:21 MCV 87.8 MCH 28.9 MCHC 32.9 RDW 14.4 Plt Count 226 MPV 10.1 Immature Gran % (Auto) Cancelled Neut % (Auto) Cancelled Lymph % (Auto) Cancelled Long % (Auto) Cancelled Eos % (Auto) Cancelled Baso % (Auto) Cancelled Lymph # (Auto) Cancelled Long # (Auto) Cancelled Eos # (Auto) Cancelled Baso # (Auto) Cancelled Abs Immat Gran (auto) Cancelled Absolute Neuts (auto) Cancelled Absolute Nucleated RBC 0.000 Nucleated RBC % (auto) 0.0 Neutrophils % (Manual) 64 Band Neutrophils % 10 H Lymphocytes % (Manual) 20 Atypical Lymphs % (Man) 2 Monocytes % (Manual) 4 Abs Neuts (Manual) 11.0 H Lymphocytes # (Manual) 3.0 Atyp Lymphs # (Manual) 0.3 Monocytes # (Manual) 0.6 Smudge Cells PRESENT Toxic Granulation Toxic Vacuolation PRESENT Platelet Estimate NORMAL Large Platelets PRESENT Giant Platelets PRESENT Plt Morphology Comment NOTED RBC Morphology NORMAL Polychromasia 1+ (0-2) [place] Bodies PRESENT [place] Cells 1+ (0-2) Hold Blue Top SEE NOTE Anion Gap 14 Estim Creat Clear Calc 81.3 Estimated GFR > 60 Random Glucose 115 Lactic Acid 2.3 H* Lactic Acid F/U @ 2Hr Lactic Acid F/U @ 4Hr Calcium 9.9 Magnesium 1.9 Total Bilirubin 0.7 Direct Bilirubin 0.2 AST 29 ALT 12 Alkaline Phosphatase 83 Troponin I High Sens 2.9 Total Protein 6.9 Albumin 3.6 TSH 1.48 Urine Color Urine Appearance Urine pH Ur Specific [place] Urine Protein Urine Glucose (UA) Urine Ketones Urine Blood Urine Nitrite Ur Leukocyte Esterase Urine RBC Urine WBC Ur Squamous Epith Cells Urine Bacteria Hyaline Casts Influenza Type A (PCR) Influenza Type B (PCR) RSV RNA Qual (PCR) SARS-CoV-2 RNA (RT-PCR) 10/19/25 10/19/25 10/19/25 12:24 15:08 17:33 MCV MCH MCHC RDW Plt Count MPV Immature Gran % (Auto) Neut % (Auto) Lymph % (Auto) Long % (Auto) Eos % (Auto) Baso % (Auto) Lymph # (Auto) Long # (Auto) Eos # (Auto) Baso # (Auto) Abs Immat Gran (auto) Absolute Neuts (auto) Absolute Nucleated RBC Nucleated RBC % (auto) Neutrophils % (Manual) Band Neutrophils % Lymphocytes % (Manual) Atypical Lymphs % (Man) Monocytes % (Manual) Abs Neuts (Manual) Lymphocytes # (Manual) Atyp Lymphs # (Manual) Monocytes # (Manual) Smudge Cells Toxic Granulation Toxic Vacuolation Platelet Estimate Large Platelets Giant Platelets Plt Morphology Comment RBC Morphology Polychromasia [place] Bodies [place] Cells Hold Blue Top Anion Gap Estim Creat Clear Calc Estimated GFR Random Glucose Lactic Acid Lactic Acid F/U @ 2Hr 4.3 H* Lactic Acid F/U @ 4Hr 2.5 H* Calcium Magnesium Total Bilirubin Direct Bilirubin AST ALT Alkaline Phosphatase Troponin I High Sens Total Protein Albumin TSH Urine Color Urine Appearance Urine pH Ur Specific [place] Urine Protein Urine Glucose (UA) Urine Ketones Urine Blood Urine Nitrite Ur Leukocyte Esterase Urine RBC Urine WBC Ur Squamous Epith Cells Urine Bacteria Hyaline Casts Influenza Type A (PCR) NEGATIVE Influenza Type B (PCR) NEGATIVE RSV RNA Qual (PCR) NEGATIVE SARS-CoV-2 RNA (RT-PCR) NEGATIVE 10/19/25 10/19/25 10/20/25 22:11 23:19 03:30 MCV 87.5 87.6 MCH 28.8 28.6 MCHC 33.0 32.7 RDW 14.5 14.6 Plt Count 237 247 MPV 9.3 L 9.5 Immature Gran % (Auto) Cancelled Neut % (Auto) Cancelled Lymph % (Auto) Cancelled Long % (Auto) Cancelled Eos % (Auto) Cancelled Baso % (Auto) Cancelled Lymph # (Auto) Cancelled Long # (Auto) Cancelled Eos # (Auto) Cancelled Baso # (Auto) Cancelled Abs Immat Gran (auto) Cancelled Absolute Neuts (auto) Cancelled Absolute Nucleated RBC 0.000 0.000 Nucleated RBC % (auto) 0.0 0.0 Neutrophils % (Manual) 94 H Band Neutrophils % 3 Lymphocytes % (Manual) 1 L Atypical Lymphs % (Man) Monocytes % (Manual) 2 Abs Neuts (Manual) 12.1 H Lymphocytes # (Manual) 0.1 L Atyp Lymphs # (Manual) Monocytes # (Manual) 0.3 Smudge Cells Toxic Granulation PRESENT Toxic Vacuolation Platelet Estimate NORMAL Large Platelets Giant Platelets Plt Morphology Comment NORMAL RBC Morphology NOTED Polychromasia [place] Bodies [place] Cells 3+ (>5) Hold Blue Top Anion Gap 12 Estim Creat Clear Calc 98.4 105.9 Estimated GFR > 60 > 60 Random Glucose 139 H Lactic Acid Lactic Acid F/U @ 2Hr Lactic Acid F/U @ 4Hr Calcium 9.0 D Magnesium 2.0 Total Bilirubin Direct Bilirubin AST ALT Alkaline Phosphatase Troponin I High Sens Total Protein Albumin TSH Urine Color Yellow Urine Appearance Clear Urine pH 6.0 Ur Specific [place] 1.015 Urine Protein 30 (1+) H Urine Glucose (UA) Negative Urine Ketones Negative Urine Blood Trace H Urine Nitrite Negative Ur Leukocyte Esterase Negative Urine RBC 3-5 H Urine WBC 0-5 Ur Squamous Epith Cells 0-2 Urine Bacteria None Seen Hyaline Casts 0-2 Influenza Type A (PCR) Influenza Type B (PCR) RSV RNA Qual (PCR) SARS-CoV-2 RNA (RT-PCR) Microbiology Microbiology Results: Microbiology 10/19/25 12:21 Blood Culture - Preliminary Blood - Venous Prelim: GPC Gram Stain only Assessment and Plan (1) Atrial fibrillation with RVR: Status: Acute (2) Pneumonia: Status: Acute (3) Sepsis: Status: Acute Plan 64-year-old female with a history of COPD and unspecified arrhythmia visiting from [place] who presents to the emergency department with shortness of breath found to have pneumonia Sepsis due to Multifocal pneumonia/grma positive cocci bacteremia 1/2 blood cultures Acute lactic acidosis improving, no further trending. Plan: IV Levaquin, added IV vanco due to above bacteremia ID evaluation noted-further testing added, continue IV antibiotics acute exacerbation of COPD continue nebs,steriods supplemental oxygen as needed to keep o2 saturation above 90% possible atrial fibrillation with rvr echo added DC Cardizem drip, started on p.o. Cardizem, Eliquis. Cardiology following. dvt ppx - lovenox Ongoing need of stay, management of COPD exacerbation, multifocal pneumonia bacteremia, AFib: requiring IV antibiotics and close monitoring of respiratory status, cardiac workup Quality Stroke Does the patient have a stroke diagnosis?: No VTE Prior VTE?: No VTE Risk Level:: Medical - moderate - high VTE Device Contraindication: N/A - Device Ordered VTE Drug Contraindication: N/A - Med Ordered
--- NOTE | 2025-10-20 09:28 | MHC.CM.PN ---
CM met with Patient and her in the ED; both only speak Estonian. CM took a cell phone # from Patient and called the # through the Telephonic Interpreting System ([phone]). Patient lives in [place] and was traveling here when she became ill. Home is the goal and CM has initiated and will follow for dc planning.
--- NOTE | 2025-10-20 10:15 | P.CONCA_ITS ---
History of Present Illness History of Present Illness Date of Service: 10/20/25 Requesting physician: Jay Torres Consult reason: atrial fibrillation Chief complaint: multifical pneumonia, tachycardia Narrative: I was consulted to see Lucy in cardiology consultation today for cardiac arrhythmias. Patient is a 64-year-old female who speaks Jamaican recently traveled from [place] with prior history of she says chronic respiratory insufficiency/COPD with recurrent COPD exacerbations while in [place]. She also was diagnose cardiac arrhythmias in 2022, she does not know the exact type. However she is on bisoprolol for the same. She has not symptoms related to the same. She just recently came here and started having symptoms of shortness of breath Thursday and came to the emergency room. She has diagnose with multifocal pneumonia. On admission EKGs she is a frequent PACs and short runs of PACs which could represent AFib. Last night she had long runs of irregular heartbeat consistent with atrial fibrillation. She was started on Cardizem drip and then converted to sinus rhythm. Cardizem drip was stopped this morning and she is having recurrent PACs and short runs and bursts of SVE. She does not recall ever being told that she has history of atrial fibrillation in the past. She continues to have symptoms of shortness of breath and currently getting IV antibiotics. She has hoping that she could go home. She denies any lightheadedness, syncope. No orthopnea, PND, leg edema no exertional chest pain. Review of Systems 2 Constitutional: Constitutional: Reports fever(s) and Reports weakness Eyes: Eyes: Reports no additional eye complaints Cardiovascular: Cardiovascular: Denies chest pain at rest, Reports rapid heart rate, Denies leg edema, Denies lightheadedness, Reports dyspnea, Reports dyspnea on exertion, Denies orthopnea and Denies paroxysmal nocturnal dyspnea Respiratory: Respiratory: Reports cough, Reports dyspnea, Reports dyspnea on exertion and Reports wheezing Gastrointestinal: Gastrointestinal: Reports no additional gastrointestinal complaints Genitourinary: Genitourinary: Reports no additional female genitourinary complaints Musculoskeletal: Musculoskeletal: Reports no additional musculoskeletal complaints Neurologic: Reports system reviewed and no additional complaints, except as documented and Reports weakness Endocrine: Endocrine: Reports no additional endocrine complaints Allergic/Immunologic: Allergic/Immunologic: Reports wheezing PMFSH Past Medical History Medical History COPD (chronic obstructive pulmonary disease) Social History Social History Patient Tobacco Use Status: Tobacco use Unknown Advance Directives: No Advance Directives Information Provided: No service: No Meds Allergies Allergy/AdvReac Type Severity Reaction Status Date / Time Penicillins (PCN) Allergy Rash Verified 10/19/25 11:44 Active Medications: Current Medications Acetaminophen (Acetaminophen 325 Mg Tablet) 650 mg PO Q6H PRN PRN Reason: Pain, Mild 1-3,fever,headache Bisoprolol Fumarate (Bisoprolol Fumarate 5 Mg Tablet) 2.5 mg PO DAILY [facility] Last Admin: 10/20/25 09:54 Dose: 2.5 mg Calcium Carbonate (Calcium Carbonate 750 Mg Tab.Chew) 750 mg PO Q4H PRN PRN Reason: Heartburn Enoxaparin Sodium (Enoxaparin Sodium 40 Mg/0.4 Ml Syringe) 40 mg SUBCUT Q24H [facility] Last Admin: 10/19/25 18:46 Dose: 40 mg Guaifenesin/Dextromethorphan (Guaifenesin Dm 100/10/5 Ml 5 Ml Syrup) 5 ml PO Q6H PRN PRN Reason: Cough Levofloxacin (Levaquin) 750 mg in 150 mls @ 100 mls/hr IV Q24H [facility] Sodium Chloride (Ns) 1,000 mls @ 100 mls/hr IVCONT .Q10H [facility] Last Admin: 10/20/25 08:42 Dose: 100 mls/hr Vancomycin HCl (Vancomycin/Ns) 2,000 mg in 500 mls @ 250 mls/hr IV ONCE ONE Stop: 10/20/25 12:59 Levalbuterol HCl (Levalbuterol Hcl 1.25 Mg/3 Ml Vial.Neb) 1.25 mg INHALE Q4H PRN PRN Reason: Shortness of Breath/Wheezing Levalbuterol HCl (Levalbuterol Hcl 1.25 Mg/3 Ml Vial.Neb) 1.25 mg INHALE RTID [facility] Last Admin: 10/20/25 08:07 Dose: 1.25 mg Magnesium Hydroxide (Milk Of Magnesia 30 Ml Oral.Susp) 30 ml PO DAILY PRN PRN Reason: Constipation Melatonin (Melatonin 3 Mg Tablet) 6 mg PO BEDTIME PRN PRN Reason: Insomnia Methylprednisolone Sodium Succinate (Methylprednisolone Sod Succ 40 Mg/Ml Vial) 40 mg IVPUSH Q8H [facility] Last Admin: 10/20/25 08:42 Dose: 40 mg Non-Formulary Medication (Tiotropium-Olodaterol [Stiolto Respimat]) 2 puff INHALE DAILY [facility] Pharmacy Consult (Consult Rx Vancomycin Dosing) 1 each MISCELLANE DAILY PRN PRN Reason: Consult order Sodium Chloride (0.9 % Sodium Chloride Flush 3 Ml Syringe) 3 ml IVFLUSH QSHIFT [facility] Last Admin: 10/20/25 07:46 Dose: Not Given Home Medications ?Medication ?Instructions ?Recorded ?Confirmed ?Last Taken ?Type bisoprolol fumarate 2.5 mg tablet 2.5 mg PO DAILY 10/0910/19/25 Unknown History tiotropium 2.5 mcg-olodaterol 2.5 2 puff inhalation DA [facility]ILY 10/19/25 10/19/25 Unknown History mcg/actuation mist for inhalation (Stiolto Respimat) Physical Exam 2 Vital Signs: Vital Signs: Last Vital Signs Temp 97.4 F 10/20/25 04:02 Pulse 95 10/20/25 08:46 Resp 20 10/20/25 08:09 BP 161/75 H 10/20/25 08:46 Pulse Ox 95 10/20/25 04:02 O2 Del Method Nasal Cannula 10/20/25 04:02 O2 Flow Rate 2 10/20/25 04:02 BMI result Body Mass Index 29.7 Const: General: cooperative, alert, awake and in distress moderate and respiratory Nutritional Appearance: overweight Orientation/consciousness: patient oriented x3 HEENT: Head: Yes normocephalic and Yes atraumatic Neck: Neck: Yes trachea midline and Yes supple Resp: Effort & Inspection: respiratory distress Auscultation: wheezes scattered wheezes and diminished lung sounds Cardio: Jugular venous distension: no JVD Rate: tachycardic Rhythm: a bnormal rhythm with ectopic beats Heart sounds: S1 normal heart sound present, S2 normal heart sound present, no click, no gallops, no murmurs and no rubs GI: Auscultation: normal bowel sounds Skin: General skin exam: no rashes or lesions noted Neuro: General: patient oriented x3 and no focal motor deficits Extrem: General: Yes no clubbing, cyanosis or edema Psych: Appearance: grossly normal Affect: Anxious affect present Objective Labs and Meds 10/20/25 03:30 10/20/25 03:30 Lab results: Laboratory Results - last 24 hr 10/19/25 10/19/25 10/19/25 11:21 11:22 12:21 WBC 14.8 H RBC 4.85 Hgb 14.0 Hct 42.6 MCV 87.8 MCH 28.9 MCHC 32.9 RDW 14.4 Plt Count 226 MPV 10.1 Immature Gran % (Auto) Cancelled Neut % (Auto) Cancelled Lymph % (Auto) Cancelled Arthur % (Auto) Cancelled Eos % (Auto) Cancelled Baso % (Auto) Cancelled Lymph # (Auto) Cancelled Arthur # (Auto) Cancelled Eos # (Auto) Cancelled Baso # (Auto) Cancelled Abs Immat Gran (auto) Cancelled Absolute Neuts (auto) Cancelled Absolute Nucleated RBC 0.000 Nucleated RBC % (auto) 0.0 Neutrophils % (Manual) 64 Band Neutrophils % 10 H Lymphocytes % (Manual) 20 Atypical Lymphs % (Man) 2 Monocytes % (Manual) 4 Abs Neuts (Manual) 11.0 H Lymphocytes # (Manual) 3.0 Atyp Lymphs # (Manual) 0.3 Monocytes # (Manual) 0.6 Smudge Cells PRESENT Toxic Granulation Toxic Vacuolation PRESENT Platelet Estimate NORMAL Large Platelets PRESENT Giant Platelets PRESENT Plt Morphology Comment NOTED RBC Morphology NORMAL Polychromasia 1+ (0-2) Guerrero-Vashon Bodies PRESENT Lazaro Cells 1+ (0-2) Hold Blue Top SEE NOTE Sodium 135 Potassium 4.3 Chloride 102 Carbon Dioxide 23 Anion Gap 14 BUN 16 Creatinine 0.69 Estim Creat Clear Calc 81.3 Estimated GFR > 60 Random Glucose 115 Lactic Acid 2.3 H* Lactic Acid F/U @ 2Hr Lactic Acid F/U @ 4Hr Calcium 9.9 Magnesium 1.9 Total Bilirubin 0.7 Direct Bilirubin 0.2 AST 29 ALT 12 Alkaline Phosphatase 83 Troponin I High Sens 2.9 Total Protein 6.9 Albumin 3.6 TSH 1.48 Urine Color Urine Appearance Urine pH Ur Specific [place] Urine Protein Urine Glucose (UA) Urine Ketones Urine Blood Urine Nitrite Ur Leukocyte Esterase Urine RBC Urine WBC Ur Squamous Epith Cells Urine Bacteria Hyaline Casts Influenza Type A (PCR) Influenza Type B (PCR) RSV RNA Qual (PCR) SARS-CoV-2 RNA (RT-PCR) 10/19/25 10/19/25 10/19/25 12:24 15:08 17:33 WBC RBC Hgb Hct MCV MCH MCHC RDW Plt Count MPV Immature Gran % (Auto) Neut % (Auto) Lymph % (Auto) Arthur % (Auto) Eos % (Auto) Baso % (Auto) Lymph # (Auto) Arthur # (Auto) Eos # (Auto) Baso # (Auto) Abs Immat Gran (auto) Absolute Neuts (auto) Absolute Nucleated RBC Nucleated RBC % (auto) Neutrophils % (Manual) Band Neutrophils % Lymphocytes % (Manual) Atypical Lymphs % (Man) Monocytes % (Manual) Abs Neuts (Manual) Lymphocytes # (Manual) Atyp Lymphs # (Manual) Monocytes # (Manual) Smudge Cells Toxic Granulation Toxic Vacuolation Platelet Estimate Large Platelets Giant Platelets Plt Morphology Comment RBC Morphology Polychromasia Guerrero-Vashon Bodies [place] Cells Hold Blue Top Sodium Potassium Chloride Carbon Dioxide Anion Gap BUN Creatinine Estim Creat Clear Calc Estimated GFR Random Glucose Lactic Acid Lactic Acid F/U @ 2Hr 4.3 H* Lactic Acid F/U @ 4Hr 2.5 H* Calcium Magnesium Total Bilirubin Direct Bilirubin AST ALT Alkaline Phosphatase Troponin I High Sens Total Protein Albumin TSH Urine Color Urine Appearance Urine pH Ur Specific [place] Urine Protein Urine Glucose (UA) Urine Ketones Urine Blood Urine Nitrite Ur Leukocyte Esterase Urine RBC Urine WBC Ur Squamous Epith Cells Urine Bacteria Hyaline Casts Influenza Type A (PCR) NEGATIVE Influenza Type B (PCR) NEGATIVE RSV RNA Qual (PCR) NEGATIVE SARS-CoV-2 RNA (RT-PCR) NEGATIVE 10/19/25 10/19/25 10/20/25 22:11 23:19 03:30 WBC 13.5 H 12.5 H RBC 4.23 4.12 L Hgb 12.2 11.8 L Hct 37.0 36.1 L MCV 87.5 87.6 MCH 28.8 28.6 MCHC 33.0 32.7 RDW 14.5 14.6 Plt Count 237 247 MPV 9.3 L 9.5 Immature Gran % (Auto) Cancelled Neut % (Auto) Cancelled Lymph % (Auto) Cancelled Arthur % (Auto) Cancelled Eos % (Auto) Cancelled Baso % (Auto) Cancelled Lymph # (Auto) Cancelled Arthur # (Auto) Cancelled Eos # (Auto) Cancelled Baso # (Auto) Cancelled Abs Immat Gran (auto) Cancelled Absolute Neuts (auto) Cancelled Absolute Nucleated RBC 0.000 0.000 Nucleated RBC % (auto) 0.0 0.0 Neutrophils % (Manual) 94 H Band Neutrophils % 3 Lymphocytes % (Manual) 1 L Atypical Lymphs % (Man) Monocytes % (Manual) 2 Abs Neuts (Manual) 12.1 H Lymphocytes # (Manual) 0.1 L Atyp Lymphs # (Manual) Monocytes # (Manual) 0.3 Smudge Cells Toxic Granulation PRESENT Toxic Vacuolation Platelet Estimate NORMAL Large Platelets Giant Platelets Plt Morphology Comment NORMAL RBC Morphology NOTED Polychromasia Guerrero-Vashon Bodies [place] Cells 3+ (>5) Hold Blue Top Sodium 138 Potassium 3.7 Chloride 108 Carbon Dioxide 22 Anion Gap 12 BUN 11 11 Creatinine 0.57 0.53 Estim Creat Clear Calc 98.4 105.9 Estimated GFR > 60 > 60 Random Glucose 139 H Lactic Acid Lactic Acid F/U @ 2Hr Lactic Acid F/U @ 4Hr Calcium 9.0 D Magnesium 2.0 Total Bilirubin Direct Bilirubin AST ALT Alkaline Phosphatase Troponin I High Sens Total Protein Albumin TSH Urine Color Yellow Urine Appearance Clear Urine pH 6.0 Ur Specific [place] 1.015 Urine Protein 30 (1+) H Urine Glucose (UA) Negative Urine Ketones Negative Urine Blood Trace H Urine Nitrite Negative Ur Leukocyte Esterase Negative Urine RBC 3-5 H Urine WBC 0-5 Ur Squamous Epith Cells 0-2 Urine Bacteria None Seen Hyaline Casts 0-2 Influenza Type A (PCR) Influenza Type B (PCR) RSV RNA Qual (PCR) SARS-CoV-2 RNA (RT-PCR) Imaging Radiologist's impression: Impressions Chest X-Ray 10/19/25 11:53 IMPRESSION: Right lower lobe pneumonia. Follow-up is recommended to document resolution. Electronically signed by: Bharat aSntana MD 10/19/2025 11:59 AM [facility] Chest CTA 10/19/25 13:28 IMPRESSION: 1. Exam limited by moderate respiratory motion artifact. There is no central or segmental pulmonary embolus. Subsegmental emboli in the lower lobes would be difficult to exclude although apparent filling defects appearance favor motion artifact on the imaging. 2. There is no aortic aneurysm. There is no acute aortic syndrome. 3. Extensive consolidation of the right lower lobe with air bronchograms. Subtle patchy peribronchial opacities also present in the right middle lobe, and posterior left lower lobe. Findings are in keeping with multifocal pneumonia. There is no effusion. 4. There is underlying mild to moderate emphysema. 5. There are mildly enlarged central mediastinal and right hilar lymph nodes, presumably reactive given the process within the right lung. 6. There is an indeterminant mass in the right adrenal gland measuring 3.1 x 3.3 cm, statistically an adenoma although indeterminate. Correlation with any prior imaging is recommended. Otherwise, recommend dedicated outpatient cross-sectional imaging when the patient is able. 7. There is diffuse fatty infiltration of the liver. There are 3 indeterminate liver lesions present measuring up to 1.3 cm, entirely nonspecific, again, correlation with any prior imaging is recommended. Otherwise, recommend dedicated outpatient cross-sectional imaging when the patient is able. 8. There are additional ancillary findings as discussed in the body of the report. Electronically signed by: Júnior Felipe MD 10/19/2025 02:25 PM [facility] Assessment and Plan (1) Atrial fibrillation with RVR: Status: Acute Patient with episodes of rapid heart rate consistent with atrial fibrillation which is not unusual patients with significant pulmonary issues with COPD exacerbation in his underlying COPD. She has has significant bronchospastic airway disease at this point time. I would switch her beta-shakeel therapy to Cardizem therapy to reduce bronchial irritation. Would start Cardizem 30 mg p.o. q.6 hours with intermittent Cardizem IV boluses as needed. Continue aggressive treatment of her COPD and pneumonia. She is also noted to be hypertensive and her CHADSVASc score is 3 and remains at risk for recurrent atrial fibrillation therefore I would strongly suggest her to be started on oral anticoagulation therapy with Eliquis at 5 mg b.i.d.. Consider switching to Xopenex therapy. Recommend echocardiogram Will sign of the case. Thank you for allowing me to partake in her care Procedures Date of Service Date of Service: 10/20/25
--- NOTE | 2025-10-20 10:52 | HO.NURTONUR ---
Pt is a 64yo F who speaks Lithuanian recently traveled from [place] to visit family. Pt developed SOB w exertion x4days. Hx of COPD, cardiac arrhythmia, HTN. CXR shows pna. Bld cxs drawn, IVabx started. While in ED pt had episodes of afib. Briefly placed on diltiazem gtt. Dilt gtt turned off, heart rate in the 70s. Switching pt to PO dilt. Placed on 2LNC. Nonproductive cough. Regular diet. Up to bedside commode with 1 assist. 20g bilateral ACs. at bedside.
[2025-10-20] MEDS: vancomycin/NS 2,000 MG/500 ML PLAST..BAG 250 MG IV (14:32)
--- NOTE | 2025-10-20 14:48 | P.CNID_ITS ---
History of Present Illness Data of Consult Service Date: 10/20/25 Requesting physician: Jay Torres Primary Care Provider: None Physician HPI Reason for consult: multifocal pneumonia She presents with shortness of breath for couple days. She has right air bronchograms and extensive RLL consolidation and just came from [place]. She has no record here and not sure of tuberculosis status. She is 94% oxygen on two liters. Review of Systems 2 Review of Systems: Yes all other systems are reviewed and are negative PMF Past Medical History Medical History COPD (chronic obstructive pulmonary disease) Family History Family history: reviewed and not pertinent Social History Social History Patient Tobacco Use Status: Tobacco use Unknown Advance Directives: No Advance Directives Information Provided: No service: No Meds Allergies Allergy/AdvReac Type Severity Reaction Status Date / Time Penicillins (PCN) Allergy Rash Verified 10/19/25 11:44 Active Medications: Current Medications Acetaminophen (Acetaminophen 325 Mg Tablet) 650 mg PO Q6H PRN PRN Reason: Pain, Mild 1-3,fever,headache Apixaban (Apixaban 5 Mg Tablet) 5 mg PO BID [facility] Last Admin: 10/20/25 12:18 Dose: 5 mg Calcium Carbonate (Calcium Carbonate 750 Mg Tab.Chew) 750 mg PO Q4H PRN PRN Reason: Heartburn Diltiazem HCl (Diltiazem Hcl 30 Mg Tablet) 30 mg PO QID [facility]; Protocol Last Admin: 10/20/25 14:32 Dose: 30 mg Guaifenesin/Dextromethorphan (Guaifenesin Dm 100/10/5 Ml 5 Ml Syrup) 5 ml PO Q6H PRN PRN Reason: Cough Levofloxacin (Levaquin) 750 mg in 150 mls @ 100 mls/hr IV Q24H [facility] Last Infusion: 10/20/25 14:33 Dose: Infused Sodium Chloride (Ns) 1,000 mls @ 100 mls/hr IVCONT .Q10H [facility] Last Admin: 10/20/25 08:42 Dose: 100 mls/hr Levalbuterol HCl (Levalbuterol Hcl 1.25 Mg/3 Ml Vial.Neb) 1.25 mg INHALE Q4H PRN PRN Reason: Shortness of Breath/Wheezing Levalbuterol HCl (Levalbuterol Hcl 1.25 Mg/3 Ml Vial.Neb) 1.25 mg INHALE RTID [facility] Last Admin: 10/20/25 08:07 Dose: 1.25 mg Magnesium Hydroxide (Milk Of Magnesia 30 Ml Oral.Susp) 30 ml PO DAILY PRN PRN Reason: Constipation Melatonin (Melatonin 3 Mg Tablet) 6 mg PO BEDTIME PRN PRN Reason: Insomnia Methylprednisolone Sodium Succinate (Methylprednisolone Sod Succ 40 Mg/Ml Vial) 40 mg IVPUSH Q12H [facility] Last Admin: 10/20/25 12:05 Dose: 40 mg Non-Formulary Medication (Tiotropium-Olodaterol [Stiolto Respimat]) 2 puff INHALE DAILY [facility] Pharmacy Consult (Consult Rx Vancomycin Dosing) 1 each MISCELLANE DAILY PRN PRN Reason: Consult order Sodium Chloride (0.9 % Sodium Chloride Flush 3 Ml Syringe) 3 ml IVFLUSH QSHIFT [facility] Last Admin: 10/20/25 07:46 Dose: Not Given Home Medications ?Medication ?Instructions ?Recorded ?Confirmed ?Last Taken ?Type bisoprolol fumarate 2.5 mg tablet 2.5 mg PO DAILY 10/0910/19/25 Unknown History tiotropium 2.5 mcg-olodaterol 2.5 2 puff inhalation DA [facility] 10/19/25 10/19/25 Unknown History mcg/actuation mist for inhalation (Stiolto Respimat) Physical Exam 2 Vital Signs: Vital Signs: Last Vital Signs Temp 98.6 F 10/20/25 12:00 Pulse 81 10/20/25 14:35 Resp 20 10/20/25 14:35 BP 135/90 H 10/20/25 14:35 Pulse Ox 94 10/20/25 14:35 O2 Del Method Nasal Cannula 10/20/25 14:35 O2 Flow Rate 2 10/20/25 14:35 BMI result Body Mass Index 29.7 Const: General: cooperative HEENT: Head: Yes normal to inspection Face and sinus: Yes normal facial exam Mouth: Normal oral and palatal mucosa present Teeth and gingiva: d entition normal Eyes: General: appearance normal, both eyes and all related structures P upils: Equal, round and reactive pupils present Resp: Other: wheezes and diminished breath sounds bases Cardio: Rate: regular rate Rhythm: regular rhythm GI: Palpation (GI): Soft to palpation and nontender : General: Yes no CVA tenderness Back/Spine/Pelvis: Back: no CVA tenderness Skin: General skin exam: no rashes or lesions noted Neuro: General: moves all extremities Cranial nerves: Yes Equal, round and reactive pupils present Extrem: General: Yes normal to inspection Psych: Appearance: grossly normal Results Labs 10/20/25 03:30 10/20/25 03:30 Labs: Short CBC 10/19/25 10/20/25 Range/Units 23:19 03:30 WBC 13.5 H 12.5 H (4.8-10.8) X10*3/uL Hgb 12.2 11.8 L (12.0-16.0) g/dl Hct 37.0 36.1 L (37.0-47.0) % Plt Count 237 247 (160-400) X10*3/uL BMP 10/19/25 10/20/25 23:19 03:30 Sodium 138 Potassium 3.7 Chloride 108 Carbon Dioxide 22 BUN 11 11 Creatinine 0.57 0.53 Calcium 9.0 D Urine 10/19/25 Range/Units 22:11 Urine Color Yellow Urine Appearance Clear Urine pH 6.0 (5.0-9.0) Ur Specific [place] 1.015 (1.005-1.025) Urine Protein 30 (1+) H (Neg-Trace) mg/dL Urine Glucose (UA) Negative (Negative) mg/dL Microbiology Microbiology Results: Microbiology 10/19/25 12:24 Blood - Venous Blood Culture - Preliminary No growth after 24 hours. 10/19/25 12:21 Blood - Venous Blood Culture - Preliminary Prelim: GPC Gram Stain only Assessment and Plan (1) Sepsis: Qualifiers: Sepsis acute organ dysfunction status: with acute organ dysfunction S epsis type: sepsis due to unspecified organism Severe sepsis acute organ dysfunction type: unspecified Severe sepsis shock status: without septic shock Qualified Code(s): A41.9 - Sepsis, unspecified organism; R65.20 - Severe sepsis without septic shock Status: Acute (2) Pneumonia: Qualifiers: Laterality: right Lung location: lower lobe of lung Pneumonia type: d ue to unspecified organism Qualified Code(s): J18.9 - Pneumonia, unspecified organism Status: Acute Plan She has extensive pneumonic infiltrates travel history to [place] some hilar lymphadenopathy no medical history or local PCP that I see Would do respiratory isolation. MTB sputum Tspot HIV,Hepatitis C. Levaquin can give IV and then po cover above pneumonia,probable 7-10 d Check urine Legionella Urine strep pneumonia Histoplasmosis,blastomycosis,cryptococcus.
[2025-10-20] MEDS: 0.9 % Sodium Chloride Flush 3 ML SYRINGE IVFLUSH (23:57)
[2025-10-21] VITALS (13 sets, daily range): BP systolic 123–163; BP diastolic 72–97; PULSE 70–87; RESP 16–22; TEMP 36.2–36.7; O2SAT 94–98
[2025-10-21 07:07] LABS: Creatinine Clr Calc Pharmacy 98.4; Estimated Glomerular Filt Rate > 60
[2025-10-21 07:32] LABS: HIV Num 1 8.14 S/CO (0.00-0.99); ~HepC Num1 0.09 S/CO (0.00-0.79); ~Hepatitis C Antibody Nonreactive (Nonreactive)
--- NOTE | 2025-10-21 08:10 | P.PNIM_ITS ---
Subjective Subjective Date of Service: 10/21/25 Interval History: gram positive bacteremia Review of Systems sob seems improving has dry cough no fevers Review of Systems: Yes all other systems are reviewed and are negative Physical Exam 2 Exam: Exam: Appearance: Alert.? Oriented X3.? cvs: rrr, [id number] . res: air entry diminshed . abd: no rebound or guarding ,nt, bs present. ext pulses present , no cyanosis . neuro: axo3 , nonfocal. Vital Signs: Vital Signs: Last Vital Signs Temp 97.8 F 10/21/25 03:20 Pulse 71 10/21/25 03:20 Resp 20 10/21/25 03:20 BP 124/80 10/21/25 03:20 Pulse Ox 96 10/21/25 03:20 O2 Del Method Nasal Cannula 10/21/25 03:20 O2 Flow Rate 4 10/21/25 03:20 BMI result Body Mass Index 29.7 Objective Data Active Medications Acetaminophen (Acetaminophen 325 Mg Tablet) 650 mg PO Q6H PRN PRN Reason: Pain, Mild 1-3,fever,headache Apixaban (Apixaban 5 Mg Tablet) 5 mg PO BID [facility] Last Admin: 10/20/25 20:56 Dose: 5 mg Documented By: PITER Calcium Carbonate (Calcium Carbonate 750 Mg Tab.Chew) 750 mg PO Q4H PRN PRN Reason: Heartburn Diltiazem HCl (Diltiazem Hcl 30 Mg Tablet) 30 mg PO QID [facility]; Protocol Last Admin: 10/20/25 20:56 Dose: 30 mg Documented By: PITER Guaifenesin/Dextromethorphan (Guaifenesin Dm 100/10/5 Ml 5 Ml Syrup) 5 ml PO Q6H PRN PRN Reason: Cough Levofloxacin (Levaquin) 750 mg in 150 mls @ 100 mls/hr IV Q24H [facility] Last Infusion: 10/20/25 14:33 Dose: Infused Documented By: LEVON Sodium Chloride (Ns) 1,000 mls @ 100 mls/hr IVCONT .Q10H [facility] Last Admin: 10/21/25 02:16 Dose: 100 mls/hr Documented By: PITER Vancomycin HCl 1,250 mg/ (Sodium Chloride) 250 mls @ 166.667 mls/hr IV Q12H [facility] Last Infusion: 10/21/25 04:12 Dose: Infused Documented By: PITER Levalbuterol HCl (Levalbuterol Hcl 1.25 Mg/3 Ml Vial.Neb) 1.25 mg INHALE Q4H PRN PRN Reason: Shortness of Breath/Wheezing Levalbuterol HCl (Levalbuterol Hcl 1.25 Mg/3 Ml Vial.Neb) 1.25 mg INHALE RTID [facility] Last Admin: 10/20/25 20:22 Dose: 1.25 mg Documented By: JANNIE Magnesium Hydroxide (Milk Of Magnesia 30 Ml Oral.Susp) 30 ml PO DAILY PRN PRN Reason: Constipation Melatonin (Melatonin 3 Mg Tablet) 6 mg PO BEDTIME PRN PRN Reason: Insomnia Methylprednisolone Sodium Succinate (Methylprednisolone Sod Succ 40 Mg/Ml Vial) 40 mg IVPUSH Q12H [facility] Last Admin: 10/20/25 23:57 Dose: 40 mg Documented By: PITER Non-Formulary Medication (Tiotropium-Olodaterol [Stiolto Respimat]) 2 puff INHALE DAILY [facility] Pharmacy Consult (Consult Rx Vancomycin Dosing) 1 each MISCELLANE DAILY PRN PRN Reason: Consult order Sodium Chloride (0.9 % Sodium Chloride Flush 3 Ml Syringe) 3 ml IVFLUSH QSHIFT [facility] Last Admin: 10/20/25 23:57 Dose: 3 ml Documented By: PITER Labs 10/20/25 03:30 10/21/25 06:37 Labs: Laboratory Results - last 24 hr 10/20/25 10/21/25 15:49 06:37 Estim Creat Clear Calc 98.4 Estimated GFR > 60 Cryptococcal Ag SEE NOTE Microbiology Microbiology Results: Microbiology 10/19/25 12:24 Blood Culture - Preliminary Blood - Venous Prelim: GPC Gram Stain only 10/19/25 12:21 Blood Culture - Preliminary Blood - Venous Prelim: GPC Gram Stain only Assessment and Plan (1) Atrial fibrillation with RVR: Status: Acute (2) Pneumonia: Status: Acute (3) Sepsis: Status: Acute Plan 64-year-old female with a history of COPD and unspecified arrhythmia visiting from [place] who presents to the emergency department with shortness of breath found to have pneumonia Sepsis due to Multifocal pneumonia/staph species (2/2) Acute lactic acidosis improving, no further trending. Plan: Strep, Legionella antigen, AFP, tspot Histoplasmosis,blastomycosis,cryptococcus HIV,Hepatitis C. IV Levaquin, added IV vanco due to above bacteremia ID evaluation noted-further testing added, continue IV antibiotics acute exacerbation of COPD continue nebs,steriods supplemental oxygen as needed to keep o2 saturation above 90% possible atrial fibrillation with rvr echo added DC Cardizem drip, started on p.o. Cardizem, Eliquis. Cardiology following. dvt ppx - lovenox Ongoing need of stay, management of COPD exacerbation, multifocal pneumonia bacteremia, AFib: requiring IV antibiotics and close monitoring of respiratory status, cardiac workup Quality Stroke Does the patient have a stroke diagnosis?: No VTE Prior VTE?: No VTE Risk Level:: Medical - moderate - high VTE Device Contraindication: N/A - Device Ordered VTE Drug Contraindication: N/A - Med Ordered
[2025-10-21 08:45] LABS: Anion Gap 10 (12-20); Blood Urea Nitrogen 16 mg/dL (9-16); Calcium 8.7 mg/dL (8.4-10.2); Carbon Dioxide 23 mmol/L (22-29); Chloride 109 mmol/L (96-108); Potassium 4.0 mmol/L (3.3-5.1); Sodium 138 mmol/L (135-145)
[2025-10-21 09:51] LABS: HIV Num 2 0.05 S/CO; HIV Num 3 0.06 S/CO
[2025-10-21] MEDS: 0.9 % Sodium Chloride Flush 3 ML SYRINGE IVFLUSH ×2 (10:12→15:13)
--- NOTE | 2025-10-21 12:46 | HE.PHANOTE ---
RE: VANCO DOSING Trough came back as 9.7 mg/L, renal function is stable. Dose is increased to 1500 mg q12h, next trough is scheduled for 10/22/25 @1200.
[2025-10-22] VITALS (10 sets, daily range): BP systolic 141–164; BP diastolic 80–89; PULSE 75–84; RESP 18–20; TEMP 36.3–36.8; O2SAT 93–97
[2025-10-22] MEDS: Magnesium Hydrox/Alum Hydrox 30 ML ORAL.SUSP PO (02:15)
[2025-10-22 07:24] LABS: Creatinine Clr Calc Pharmacy 102.0; Estimated Glomerular Filt Rate > 60
[2025-10-22] MEDS: dilTIAZem HCL CD 120 MG CAP.ER.DEG PO (10:17)
[2025-10-22] MEDS: 0.9 % Sodium Chloride Flush 3 ML SYRINGE IVFLUSH ×3 (10:18→20:04)
--- NOTE | 2025-10-22 12:22 | HE.PHANOTE ---
RE: VANCO DOSING Trough came back as 14.2 mg/L, renal function is stable. Continue with dose 1500 mg q12h, next trough scheduled for 10/23/25 @1200.
--- NOTE | 2025-10-22 15:46 | HO.PM.IMPN ---
Subjective Subjective Date of Service: 10/22/25 Interval History: strep bactermia Review of Systems Shortness of breaths and cough improving no fevers Review of Systems: Yes all other systems are reviewed and are negative Physical Exam Exam: Exam: Appearance: Alert.? Oriented X3.? cvs: rrr, [id number] . res: air entry diminshed . abd: no rebound or guarding ,nt, bs present. ext pulses present , no cyanosis . neuro: axo3 , nonfocal. Vital Signs: Vital Signs: Last Vital Signs Temp 97.5 F 10/22/25 15:33 Pulse 80 10/22/25 15:33 Resp 18 10/22/25 15:33 BP 162/84 H 10/22/25 15:33 Pulse Ox 93 10/22/25 15:33 O2 Del Method Nasal Cannula 10/22/25 15:33 O2 Flow Rate 2 10/22/25 15:33 BMI result Body Mass Index 29.7 Objective Data Active Medications Acetaminophen (Acetaminophen 325 Mg Tablet) 650 mg PO Q6H PRN PRN Reason: Pain, Mild 1-3,fever,headache Al Hydroxide/Mg Hydroxide (Magnesium Hydrox/Alum Hydrox 30 Ml Oral.Susp) 30 ml PO DAILY PRN PRN Reason: reflux Last Admin: 10/22/25 02:15 Dose: 30 ml Documented By: CAROLINE Apixaban (Apixaban 5 Mg Tablet) 5 mg PO BID [facility] Last Admin: 10/22/25 10:18 Dose: 5 mg Documented By: XAVIER Calcium Carbonate (Calcium Carbonate 750 Mg Tab.Chew) 750 mg PO Q4H PRN PRN Reason: Heartburn Last Admin: 10/21/25 18:13 Dose: 750 mg Documented By: XAVIER Diltiazem HCl (Diltiazem Hcl Cd 120 Mg Cap.Er.Deg) 120 mg PO DAILY [facility]; Protocol Last Admin: 10/22/25 10:17 Dose: 120 mg Documented By: XAVIER Guaifenesin/Dextromethorphan (Guaifenesin Dm 100/10/5 Ml 5 Ml Syrup) 5 ml PO Q6H PRN PRN Reason: Cough Levofloxacin (Levaquin) 750 mg in 150 mls @ 100 mls/hr IV Q24H [facility] Last Infusion: 10/22/25 14:01 Dose: Infused Documented By: XAVIER Vancomycin HCl 1,500 mg/ (Sodium Chloride) 500 mls @ 333.333 mls/hr IV Q12H [facility] Last Admin: 10/22/25 14:16 Dose: 333.33 mls/hr Documented By: XAVIER Levalbuterol HCl (Levalbuterol Hcl 1.25 Mg/3 Ml Vial.Neb) 1.25 mg INHALE Q4H PRN PRN Reason: Shortness of Breath/Wheezing Levalbuterol HCl (Levalbuterol Hcl 1.25 Mg/3 Ml Vial.Neb) 1.25 mg INHALE RTID [facility] Last Admin: 10/22/25 14:25 Dose: 1.25 mg Documented By: MACARIO Magnesium Hydroxide (Milk Of Magnesia 30 Ml Oral.Susp) 30 ml PO DAILY PRN PRN Reason: Constipation Melatonin (Melatonin 3 Mg Tablet) 6 mg PO BEDTIME PRN PRN Reason: Insomnia Methylprednisolone Sodium Succinate (Methylprednisolone Sod Succ 40 Mg/Ml Vial) 40 mg IVPUSH Q12H [facility] Last Admin: 10/22/25 10:18 Dose: 40 mg Documented By: XAVIER Non-Formulary Medication (Tiotropium-Olodaterol [Stiolto Respimat]) 2 puff INHALE DAILY [facility] Pharmacy Consult (Consult Rx Vancomycin Dosing) 1 each MISCELLANE DAILY PRN PRN Reason: Consult order Simethicone (Simethicone 80 Mg Tab.Chew) 80 mg PO QIDWMHS PRN PRN Reason: Gas Sodium Chloride (0.9 % Sodium Chloride Flush 3 Ml Syringe) 3 ml IVFLUSH QSHIFT [facility] Last Admin: 10/22/25 10:18 Dose: 3 ml Documented By: XAVIER Labs 10/20/25 03:30 10/22/25 06:33 Labs: Laboratory Results - last 24 hr 10/22/25 10/22/25 06:33 11:41 Estim Creat Clear Calc 102.0 Estimated GFR > 60 Random Vancomycin 14.2 L Microbiology Microbiology Results: Microbiology 10/19/25 12:24 Blood Culture - Final Blood - Venous Streptococcus pneumoniae 10/19/25 12:21 Blood Culture - Final Blood - Venous Streptococcus pneumoniae Assessment and Plan (1) Atrial fibrillation with RVR: Status: Acute (2) Pneumonia: Status: Acute (3) Sepsis: Status: Acute Plan 64-year-old female with a history of COPD and unspecified arrhythmia visiting from [place] who presents to the emergency department with shortness of breath found to have pneumonia Sepsis due to Multifocal pneumonia/strep pneumoniae (2/2) Acute lactic acidosis improving, no further trending. Plan: Strep, Legionella antigen, AFP, tspot Histoplasmosis,blastomycosis,cryptococcus HIV,Hepatitis C-nonreactive. IV Levaquin, added IV vanco due to above bacteremia ID evaluation noted-further testing added, continue vanco, hold Levaquin acute exacerbation of COPD continue nebs,steriods supplemental oxygen as needed to keep o2 saturation above 90% possible atrial fibrillation with rvr echo added DC Cardizem drip, started on p.o. Cardizem, Eliquis. Cardiology following. dvt ppx - lovenox Ongoing need of stay, management of COPD exacerbation, multifocal pneumonia bacteremia, AFib: requiring IV antibiotics and close monitoring of respiratory status, cardiac workup Quality Stroke Does the patient have a stroke diagnosis?: No VTE Prior VTE?: No VTE Risk Level:: Medical - moderate - high VTE Device Contraindication: N/A - Device Ordered VTE Drug Contraindication: N/A - Med Ordered
[2025-10-23] VITALS (9 sets, daily range): BP systolic 130–175; BP diastolic 70–90; PULSE 76–112; RESP 16–20; TEMP 36.2–36.9; O2SAT 92–96
[2025-10-23 07:44] LABS: Creatinine Clr Calc Pharmacy 100.2; Estimated Glomerular Filt Rate > 60
[2025-10-23] MEDS: dilTIAZem HCL CD 120 MG CAP.ER.DEG PO (09:31)
[2025-10-23] MEDS: 0.9 % Sodium Chloride Flush 3 ML SYRINGE IVFLUSH ×3 (09:44→19:51)
--- NOTE | 2025-10-23 14:54 | P.PNID_ITS ---
Subjective Subjective Date of Service: 10/23/25 Critical Care Time (minutes): 15 Comment: there are no complaints still on oxygen Objective Data Labs 10/20/25 03:30 10/23/25 06:33 Labs: Laboratory Results - last 24 hr 10/23/25 10/23/25 10/23/25 06:33 06:57 10:49 Hold Purple Top SEE NOTE Creatinine 0.56 Estim Creat Clear Calc 100.2 Estimated GFR > 60 Random Vancomycin 7.2 L Microbiology Microbiology Results: Microbiology 10/21/25 Unknown Sputum - Expectorated Direct Acid Fast Bacilli Smear - Final 10/21/25 Unknown Sputum - Expectorated Acid Fast Bacilli Culture & Smear - Preliminary 10/19/25 12:24 Blood - Venous Blood Culture - Final Streptococcus pneumoniae 10/19/25 12:21 Blood - Venous Blood Culture - Final Streptococcus pneumoniae Physical Exam 2 Vital Signs: Vital Signs: Last Vital Signs Temp 97.6 F 10/23/25 12:00 Pulse 98 10/23/25 12:00 Resp 20 10/23/25 12:00 BP 153/71 H 10/23/25 12:00 Pulse Ox 94 10/23/25 12:00 O2 Del Method Nasal Cannula 10/23/25 12:00 O2 Flow Rate 2 10/23/25 12:00 BMI result Body Mass Index 29.7 Const: General: cooperative HEENT: Head: Yes normal to inspection Face and sinus: Yes normal facial exam Mouth: Normal oral and palatal mucosa present Teeth and gingiva: d entition normal Eyes: General: appearance normal, both eyes and all related structures P upils: Equal, round and reactive pupils present Resp: Effort & Inspection: normal respiratory effort Cardio: Rate: regular rate Rhythm: regular rhythm GI: Palpation (GI): Soft to palpation and nontender : General: Yes no CVA tenderness Back/Spine/Pelvis: Back: no CVA tenderness Skin: General skin exam: no rashes or lesions noted Neuro: General: moves all extremities Cranial nerves: Yes Equal, round and reactive pupils present Extrem: General: Yes normal to inspection Psych: Appearance: grossly normal Assessment and Plan Assessment and plan (1) Pneumonia: Problem details: still some respiratory symptoms Status: Acute Assessment and Plan: Would give cephalosporin with atypical coverage such as azithromycin await testing but when stable can go with po medications Time Spent With Patient Time: Total time managing care of this patient today ____ minutes.
--- NOTE | 2025-10-23 16:24 | MHC.CM.PN ---
CM ATTEMPTED TO CONTACT PTS SON REGARDING THE LETTER HE HAD REQUESTED. CYRAKeepy USED, CHEMICAL CELL CHANGER NUMBER [phone] CALL WAS ATTEMPTED X 2, BOTH TIMES DISCONNECTED LETTER WILL BE LEFT ON PTS CHART
--- NOTE | 2025-10-23 17:25 | HO.PM.IMPN ---
Subjective Subjective Date of Service: 10/23/25 Interval History: strep bactermia Review of Systems as above Review of Systems: Yes all other systems are reviewed and are negative Physical Exam Vital Signs: Vital Signs: Last Vital Signs Temp 97.6 F 10/23/25 16:00 Pulse 82 10/23/25 16:00 Resp 20 10/23/25 16:00 BP 149/83 H 10/23/25 16:00 Pulse Ox 96 10/23/25 16:00 O2 Del Method Nasal Cannula 10/23/25 16:00 O2 Flow Rate 2 10/23/25 16:00 BMI result Body Mass Index 29.7 Appearance: Alert.? Oriented X3.? cvs: rrr, [id number] . res: air entry diminshed . abd: no rebound or guarding ,nt, bs present. ext pulses present , no cyanosis . neuro: axo3 , nonfocal. Objective Data Active Medications Acetaminophen (Acetaminophen 325 Mg Tablet) 650 mg PO Q6H PRN PRN Reason: Pain, Mild 1-3,fever,headache Al Hydroxide/Mg Hydroxide (Magnesium Hydrox/Alum Hydrox 30 Ml Oral.Susp) 30 ml PO DAILY PRN PRN Reason: reflux Last Admin: 10/22/25 02:15 Dose: 30 ml Documented By: CAROLINE Apixaban (Apixaban 5 Mg Tablet) 5 mg PO BID [facility] Last Admin: 10/23/25 09:32 Dose: 5 mg Documented By: GWENDOLYN Calcium Carbonate (Calcium Carbonate 750 Mg Tab.Chew) 750 mg PO Q4H PRN PRN Reason: Heartburn Last Admin: 10/21/25 18:13 Dose: 750 mg Documented By: XAVIER Diltiazem HCl (Diltiazem Hcl Cd 120 Mg Cap.Er.Deg) 120 mg PO DAILY [facility]; Protocol Last Admin: 10/23/25 09:31 Dose: 120 mg Documented By: GWENDOLYN Guaifenesin/Dextromethorphan (Guaifenesin Dm 100/10/5 Ml 5 Ml Syrup) 5 ml PO Q6H PRN PRN Reason: Cough Ceftriaxone Sodium 2 gm/ (Sodium Chloride) 50 mls @ 100 mls/hr IV Q24H [facility] Last Infusion: 10/22/25 17:44 Dose: Infused Documented By: XAVIER Levalbuterol HCl (Levalbuterol Hcl 1.25 Mg/3 Ml Vial.Neb) 1.25 mg INHALE Q4H PRN PRN Reason: Shortness of Breath/Wheezing Levalbuterol HCl (Levalbuterol Hcl 1.25 Mg/3 Ml Vial.Neb) 1.25 mg INHALE RTID [facility] Last Admin: 10/23/25 15:24 Dose: 1.25 mg Documented By: OFE Magnesium Hydroxide (Milk Of Magnesia 30 Ml Oral.Susp) 30 ml PO DAILY PRN PRN Reason: Constipation Melatonin (Melatonin 3 Mg Tablet) 6 mg PO BEDTIME PRN PRN Reason: Insomnia Non-Formulary Medication (Tiotropium-Olodaterol [Stiolto Respimat]) 2 puff INHALE DAILY [facility] Prednisone (Prednisone 20 Mg Tablet) 40 mg PO DAILY [facility] Last Admin: 10/23/25 09:42 Dose: 40 mg Documented By: GWENDOLYN Simethicone (Simethicone 80 Mg Tab.Chew) 80 mg PO QIDWMHS PRN PRN Reason: Gas Sodium Chloride (0.9 % Sodium Chloride Flush 3 Ml Syringe) 3 ml IVFLUSH QSHIFT [facility] Last Admin: 10/23/25 09:44 Dose: 3 ml Documented By: GWENDOLYN Labs 10/20/25 03:30 10/23/25 06:33 Labs: Laboratory Results - last 24 hr 10/23/25 10/23/25 10/23/25 06:33 06:57 10:49 Hold Purple Top SEE NOTE Estim Creat Clear Calc 100.2 Estimated GFR > 60 Random Vancomycin 7.2 L Microbiology Microbiology Results: Microbiology 10/21/25 Unknown Direct Acid Fast Bacilli Smear - Final Sputum - Expectorated Acid Fast Bacilli Culture & Smear - Preliminary Assessment and Plan (1) Atrial fibrillation with RVR: Status: Acute (2) Pneumonia: Status: Acute Plan 64-year-old female with a history of COPD and unspecified arrhythmia visiting from [place] who presents to the emergency department with shortness of breath found to have pneumonia Sepsis due to Multifocal pneumonia/strep pneumoniae (2/2) Acute lactic acidosis improving, no further trending. Plan: Strep, Legionella antigen, AFP, tspot Histoplasmosis,blastomycosis,cryptococcus HIV,Hepatitis C-nonreactive. Patient is switched to IV ceftriaxone due to strep bacteremia, repeat blood culture ordered, Echo seems fine acute exacerbation of COPD continue nebs,steriods supplemental oxygen as needed to keep o2 saturation above 90% possible atrial fibrillation with rvr echo added DC Cardizem drip, started on p.o. Cardizem, Eliquis. Cardiology following. dvt ppx - lovenox Ongoing need of stay: management of COPD exacerbation, multifocal pneumonia bacteremia, AFib: requiring IV antibiotics and close monitoring of respiratory status, cardiac workup Quality Stroke Does the patient have a stroke diagnosis?: No VTE Prior VTE?: No VTE Risk Level:: Medical - moderate - high VTE Device Contraindication: N/A - Device Ordered VTE Drug Contraindication: N/A - Med Ordered
[2025-10-24] VITALS (10 sets, daily range): BP systolic 122–177; BP diastolic 71–96; PULSE 76–89; RESP 16–22; TEMP 36.6–36.8; O2SAT 91–97
[2025-10-24 07:37] LABS: Creatinine Clr Calc Pharmacy 105.9; Estimated Glomerular Filt Rate > 60
[2025-10-24] MEDS: 0.9 % Sodium Chloride Flush 3 ML SYRINGE IVFLUSH ×2 (08:06→16:08)
[2025-10-24] MEDS: dilTIAZem HCL CD 120 MG CAP.ER.DEG PO (08:07)
[2025-10-24 13:14] LABS: MTB M. tuberculosis Complex NOT DETECTED (NOT DETECTED)
--- NOTE | 2025-10-24 16:09 | HO.PM.IMPN ---
Subjective Subjective Date of Service: 10/24/25 Interval History: strep bactermia Review of Systems sob /cough improving no new c/o Physical Exam Exam: Exam: Appearance: Alert.? Oriented X3.? cvs: rrr, [id number] . res: air entry diminshed . abd: no rebound or guarding ,nt, bs present. ext pulses present , no cyanosis . neuro: axo3 , nonfocal. Vital Signs: Vital Signs: Last Vital Signs Temp 98.3 F 10/24/25 15:20 Pulse 76 10/24/25 15:20 Resp 18 10/24/25 15:20 BP 126/71 10/24/25 15:20 Pulse Ox 97 10/24/25 15:20 O2 Del Method Nasal Cannula 10/24/25 15:20 O2 Flow Rate 1 10/24/25 15:20 BMI result Body Mass Index 29.7 Objective Data Active Medications Acetaminophen (Acetaminophen 325 Mg Tablet) 650 mg PO Q6H PRN PRN Reason: Pain, Mild 1-3,fever,headache Al Hydroxide/Mg Hydroxide (Magnesium Hydrox/Alum Hydrox 30 Ml Oral.Susp) 30 ml PO DAILY PRN PRN Reason: reflux Last Admin: 10/22/25 02:15 Dose: 30 ml Documented By: CAROLINE Apixaban (Apixaban 5 Mg Tablet) 5 mg PO BID [facility] Last Admin: 10/24/25 08:07 Dose: 5 mg Documented By: YAYO Azithromycin (Azithromycin 500 Mg Tablet) 500 mg PO Q24H [facility] Last Admin: 10/23/25 18:16 Dose: 500 mg Documented By: EARL Calcium Carbonate (Calcium Carbonate 750 Mg Tab.Chew) 750 mg PO Q4H PRN PRN Reason: Heartburn Last Admin: 10/21/25 18:13 Dose: 750 mg Documented By: XAVIER Diltiazem HCl (Diltiazem Hcl Cd 120 Mg Cap.Er.Deg) 120 mg PO DAILY [facility]; Protocol Last Admin: 10/24/25 08:07 Dose: 120 mg Documented By: YAYO Guaifenesin/Dextromethorphan (Guaifenesin Dm 100/10/5 Ml 5 Ml Syrup) 5 ml PO Q6H PRN PRN Reason: Cough Ceftriaxone Sodium 2 gm/ (Sodium Chloride) 50 mls @ 100 mls/hr IV Q24H [facility] Last Infusion: 10/23/25 19:21 Dose: Infused Documented By: EARL Levalbuterol HCl (Levalbuterol Hcl 1.25 Mg/3 Ml Vial.Neb) 1.25 mg INHALE Q4H PRN PRN Reason: Shortness of Breath/Wheezing Levalbuterol HCl (Levalbuterol Hcl 1.25 Mg/3 Ml Vial.Neb) 1.25 mg INHALE RTID [facility] Last Admin: 10/24/25 14:16 Dose: 1.25 mg Documented By: MASSIEL Magnesium Hydroxide (Milk Of Magnesia 30 Ml Oral.Susp) 30 ml PO DAILY PRN PRN Reason: Constipation Melatonin (Melatonin 3 Mg Tablet) 6 mg PO BEDTIME PRN PRN Reason: Insomnia Non-Formulary Medication (Tiotropium-Olodaterol [Stiolto Respimat]) 2 puff INHALE DAILY [facility] Omeprazole (Omeprazole 20 Mg Capsule.Dr) 20 mg PO BID@0630,1630 [facility] Last Admin: 10/24/25 06:10 Dose: 20 mg Documented By: ELIF Prednisone (Prednisone 20 Mg Tablet) 40 mg PO DAILY [facility] Last Admin: 10/24/25 08:07 Dose: 40 mg Documented By: YAYO Simethicone (Simethicone 80 Mg Tab.Chew) 80 mg PO QIDWMHS PRN PRN Reason: Gas Sodium Chloride (0.9 % Sodium Chloride Flush 3 Ml Syringe) 3 ml IVFLUSH QSHIFT [facility] Last Admin: 10/24/25 08:06 Dose: 3 ml Documented By: YAYO Labs 10/20/25 03:30 10/24/25 07:16 Labs: Laboratory Results - last 24 hr 10/23/25 10/24/25 12:00 07:16 Estim Creat Clear Calc 105.9 Estimated GFR > 60 M.tuberculosis DNA (PCR) NOT DETECTED [facility] Rifampin Resis PCR NOT TESTED Microbiology Microbiology Results: Microbiology 10/23/25 10:53 Blood Culture - Preliminary Blood - Venous No growth after 24 hours. 10/23/25 10:53 Blood Culture - Preliminary Blood - Venous No growth after 24 hours. 10/21/25 Unknown Direct Acid Fast Bacilli Smear - Final Sputum - Expectorated Acid Fast Bacilli Culture & Smear - Preliminary Assessment and Plan (1) Atrial fibrillation with RVR: Status: Acute (2) Pneumonia: Status: Acute Plan 64-year-old female with a history of COPD and unspecified arrhythmia visiting from [place] who presents to the emergency department with shortness of breath found to have pneumonia Sepsis due to Multifocal pneumonia/strep pneumoniae (2/2) Acute lactic acidosis improving, no further trending. Plan: Strep, Legionella antigen, AFP, tspot ,Histoplasmosis,blastomycosis,cryptococcus-pending HIV,Hepatitis C-nonreactive. Patient is switched to IV ceftriaxone due to strep bacteremia, repeat blood culture pending , Echo seems :1. Technically limited study 2. Mildly reduced LV ejection fraction 45-50% with impaired relaxation filling pattern 3. Cardiac valvular Dopplers within normal limits acute exacerbation of COPD continue nebs,steriods supplemental oxygen as needed to keep o2 saturation above 90% possible atrial fibrillation with rvr echo as above. DC Cardizem drip, started on p.o. Cardizem, Eliquis. dvt ppx - lovenox Ongoing need of stay: management of COPD exacerbation, multifocal pneumonia bacteremia, AFib: requiring IV antibiotics and close monitoring of respiratory status, cardiac workup Quality Stroke Does the patient have a stroke diagnosis?: No VTE Prior VTE?: No VTE Risk Level:: Medical - moderate - high VTE Device Contraindication: N/A - Device Ordered VTE Drug Contraindication: N/A - Med Ordered
[2025-10-25] VITALS (8 sets, daily range): BP systolic 138–158; BP diastolic 75–88; PULSE 77–112; RESP 18–20; TEMP 36.4–36.8; O2SAT 92–96
[2025-10-25 01:18] LABS: Strep Pneumo Ag urine Detected (Not Detected)
[2025-10-25] MEDS: 0.9 % Sodium Chloride Flush 3 ML SYRINGE IVFLUSH ×4 (05:07→23:39)
[2025-10-25 07:17] LABS: Creatinine Clr Calc Pharmacy 114.5; Estimated Glomerular Filt Rate > 60
[2025-10-25] MEDS: dilTIAZem HCL CD 120 MG CAP.ER.DEG PO (09:45)
--- NOTE | 2025-10-25 12:41 | HO.PM.IMPN ---
Subjective Subjective Date of Service: 10/25/25 Interval History: sob improving Physical Exam Exam: Exam: General: AO X 3, no acute distress Resp: RLL crackles, no accessory muscles used CVS: S1,S2,RRR GI: soft, non tender, non distended Neuro: motor grossly intact, alert Psych: appropriate affect, appropriate insight Vital Signs: Vital Signs: Last Vital Signs Temp 98.3 F 10/25/25 11:49 Pulse 86 10/25/25 11:49 Resp 18 10/25/25 11:49 BP 142/84 H 10/25/25 11:49 Pulse Ox 92 10/25/25 11:49 O2 Del Method Nasal Cannula 10/25/25 11:49 O2 Flow Rate 1 10/25/25 11:49 BMI result Body Mass Index 29.7 Objective Data Active Medications Acetaminophen (Acetaminophen 325 Mg Tablet) 650 mg PO Q6H PRN PRN Reason: Pain, Mild 1-3,fever,headache Al Hydroxide/Mg Hydroxide (Magnesium Hydrox/Alum Hydrox 30 Ml Oral.Susp) 30 ml PO DAILY PRN PRN Reason: reflux Last Admin: 10/22/25 02:15 Dose: 30 ml Documented By: CAROLINE Apixaban (Apixaban 5 Mg Tablet) 5 mg PO BID [facility] Last Admin: 10/25/25 09:45 Dose: 5 mg Documented By: TRES Azithromycin (Azithromycin 500 Mg Tablet) 500 mg PO Q24H [facility] Last Admin: 10/24/25 16:11 Dose: 500 mg Documented By: YAYO Calcium Carbonate (Calcium Carbonate 750 Mg Tab.Chew) 750 mg PO Q4H PRN PRN Reason: Heartburn Last Admin: 10/21/25 18:13 Dose: 750 mg Documented By: XAVIER Diltiazem HCl (Diltiazem Hcl Cd 120 Mg Cap.Er.Deg) 120 mg PO DAILY [facility]; Protocol Last Admin: 10/25/25 09:45 Dose: 120 mg Documented By: TRES Guaifenesin/Dextromethorphan (Guaifenesin Dm 100/10/5 Ml 5 Ml Syrup) 5 ml PO Q6H PRN PRN Reason: Cough Ceftriaxone Sodium 2 gm/ (Sodium Chloride) 50 mls @ 100 mls/hr IV Q24H [facility] Last Infusion: 10/24/25 16:50 Dose: Infused Documented By: YAYO Levalbuterol HCl (Levalbuterol Hcl 1.25 Mg/3 Ml Vial.Neb) 1.25 mg INHALE Q4H PRN PRN Reason: Shortness of Breath/Wheezing Levalbuterol HCl (Levalbuterol Hcl 1.25 Mg/3 Ml Vial.Neb) 1.25 mg INHALE RTID [facility] Last Admin: 10/25/25 08:38 Dose: 1.25 mg Documented By: MASSIEL Magnesium Hydroxide (Milk Of Magnesia 30 Ml Oral.Susp) 30 ml PO DAILY PRN PRN Reason: Constipation Melatonin (Melatonin 3 Mg Tablet) 6 mg PO BEDTIME PRN PRN Reason: Insomnia Non-Formulary Medication (Tiotropium-Olodaterol [Stiolto Respimat]) 2 puff INHALE DAILY [facility] Omeprazole (Omeprazole 20 Mg Capsule.) 20 mg PO BID@0630,1630 [facility] Last Admin: 10/25/25 06:21 Dose: 20 mg Documented By: DARREN Prednisone (Prednisone 20 Mg Tablet) 40 mg PO DAILY [facility] Last Admin: 10/25/25 09:45 Dose: 40 mg Documented By: TRES Simethicone (Simethicone 80 Mg Tab.Chew) 80 mg PO QIDWMHS PRN PRN Reason: Gas Sodium Chloride (0.9 % Sodium Chloride Flush 3 Ml Syringe) 3 ml IVFLUSH QSHIFT [facility] Last Admin: 10/25/25 09:44 Dose: 3 ml Documented By: TRES Labs 10/20/25 03:30 10/25/25 06:26 Labs: Laboratory Results - last 24 hr 10/21/25 10/23/25 10/25/25 18:15 12:00 06:26 Estim Creat Clear Calc 114.5 Estimated GFR > 60 M.tuberculosis DNA (PCR) NOT DETECTED MTB Rifampin Resis PCR NOT TESTED Ur Strep pneumoniae Ag Detected A Microbiology Microbiology Results: Microbiology 10/23/25 10:53 Blood Culture - Preliminary Blood - Venous No growth after 24 hours. 10/23/25 10:53 Blood Culture - Preliminary Blood - Venous No growth after 24 hours. Assessment and Plan (1) Sepsis: Status: Acute Plan 64F PMH COPD presented with sob sepsis and acute hypoxic respiratory failure due to strep pneumoniae pneumonia ceftriaxone, azithro, wean o2 (still needing 1L) acute systolic chf ef 45-50%, outpatient follow up copd with acute decompensation steroids, nebs pafib cardizem, eliquis dvt prophylaxis - eliquis full code reason for continued hospitalization:hypoxia Quality Stroke Does the patient have a stroke diagnosis?: No VTE Prior VTE?: No VTE Risk Level:: Medical - moderate - high VTE Device Contraindication: N/A - Device Ordered VTE Drug Contraindication: N/A - Med Ordered
--- NOTE | 2025-10-25 15:54 | MHC.CM.PN ---
Pt is still requiring supplemental O2, goal is to wean her off then DC to family care.
[2025-10-26] VITALS: BP 152/81; PULSE 78; RESP 18; TEMP 36.6; O2SAT 95
[2025-10-26 03:52] VITALS: BP 146/94; PULSE 71; RESP 18; TEMP 36.4; O2SAT 97
[2025-10-26 07:38] LABS: Hematocrit 42.7 % (37.0-47.0); Hemoglobin 13.7 g/dl (12.0-16.0); Mean Corpuscular HGB Conc 32.1 g/dl (31.0-35.0); Mean Corpuscular Hemoglobin 28.4 pg (27.0-33.0); Mean Corpuscular Volume 88.4 fL (80.0-98.0); NRBC Abs Auto 0.000 X10*3/uL (0.0-0.012); NRBC Pct Auto 0.0 /100WBC (0.0-0.2); Platelet Count 359 X10*3/uL (160-400); Red Blood Count 4.83 X10*6/uL (4.20-5.50); White Blood Count 11.9 X10*3/uL (4.8-10.8)
[2025-10-26 07:42] VITALS: BP 162/88; PULSE 76; RESP 16; TEMP 36.1; O2SAT 94
[2025-10-26 07:56] LABS: Alanine Aminotransferase 35 U/L (0-31); Albumin Level 3.3 g/dL (3.5-5.0); Alkaline Phosphatase 60 U/L (39-117); Anion Gap 9 (12-20); Aspartate Amino Transferase 32 U/L (5-31); Blood Urea Nitrogen 11 mg/dL (9-16); Calcium 8.5 mg/dL (8.4-10.2); Carbon Dioxide 35 mmol/L (22-29); Chloride 99 mmol/L (96-108); Creatinine Clr Calc Pharmacy 114.5; Estimated Glomerular Filt Rate > 60; Magnesium 2.3 mg/dL (1.6-2.6); Potassium 3.7 mmol/L (3.3-5.1); Sodium 139 mmol/L (135-145); Total Protein 5.7 g/dL (6.5-8.0)
[2025-10-26 08:31] VITALS: PULSE 88; RESP 16; O2SAT 96
[2025-10-26 09:30] VITALS: BP 146/74; PULSE 107
[2025-10-26] MEDS: dilTIAZem HCL CD 120 MG CAP.ER.DEG PO (09:30)
[2025-10-26] MEDS: 0.9 % Sodium Chloride Flush 3 ML SYRINGE IVFLUSH (09:33)
--- NOTE | 2025-10-26 11:23 | P.PNIM_ITS ---
Subjective Subjective Date of Service: 10/26/25 Interval History: sob improving Physical Exam 2 Exam: Exam: General: AO X 3, no acute distress Resp: RLL crackles, no accessory muscles used CVS: S1,S2,RRR GI: soft, non tender, non distended Neuro: motor grossly intact, alert Psych: appropriate affect, appropriate insight Vital Signs: Vital Signs: Last Vital Signs Temp 97.0 F 10/26/25 07:42 Pulse 107 H 10/26/25 09:30 Resp 16 10/26/25 08:31 BP 146/74 H 10/26/25 09:30 Pulse Ox 94 10/26/25 07:42 O2 Del Method Nasal Cannula 10/26/25 07:42 O2 Flow Rate 2 10/26/25 07:42 BMI result Body Mass Index 29.7 Objective Data Active Medications Acetaminophen (Acetaminophen 325 Mg Tablet) 650 mg PO Q6H PRN PRN Reason: Pain, Mild 1-3,fever,headache Al Hydroxide/Mg Hydroxide (Magnesium Hydrox/Alum Hydrox 30 Ml Oral.Susp) 30 ml PO DAILY PRN PRN Reason: reflux Last Admin: 10/22/25 02:15 Dose: 30 ml Documented By: CAROLINE Apixaban (Apixaban 5 Mg Tablet) 5 mg PO BID [facility] Last Admin: 10/26/25 09:32 Dose: 5 mg Documented By: SALTY Azithromycin (Azithromycin 500 Mg Tablet) 500 mg PO Q24H [facility] Last Admin: 10/25/25 17:30 Dose: 500 mg Documented By: TRES Calcium Carbonate (Calcium Carbonate 750 Mg Tab.Chew) 750 mg PO Q4H PRN PRN Reason: Heartburn Last Admin: 10/21/25 18:13 Dose: 750 mg Documented By: XAVIER Diltiazem HCl (Diltiazem Hcl Cd 120 Mg Cap.Er.Deg) 120 mg PO DAILY [facility]; Protocol Last Admin: 10/26/25 09:30 Dose: 120 mg Documented By: SALTY Guaifenesin/Dextromethorphan (Guaifenesin Dm 100/10/5 Ml 5 Ml Syrup) 5 ml PO Q6H PRN PRN Reason: Cough Ceftriaxone Sodium 2 gm/ (Sodium Chloride) 50 mls @ 100 mls/hr IV Q24H [facility] Last Infusion: 10/25/25 17:20 Dose: Infused Documented By: TRES Levalbuterol HCl (Levalbuterol Hcl 1.25 Mg/3 Ml Vial.Neb) 1.25 mg INHALE Q4H PRN PRN Reason: Shortness of Breath/Wheezing Levalbuterol HCl (Levalbuterol Hcl 1.25 Mg/3 Ml Vial.Neb) 1.25 mg INHALE RTID [facility] Last Admin: 10/26/25 08:31 Dose: 1.25 mg Documented By: SONAL Magnesium Hydroxide (Milk Of Magnesia 30 Ml Oral.Susp) 30 ml PO DAILY PRN PRN Reason: Constipation Melatonin (Melatonin 3 Mg Tablet) 6 mg PO BEDTIME PRN PRN Reason: Insomnia Omeprazole (Omeprazole 20 Mg Capsule.Dr) 20 mg PO BID@0630,1630 [facility] Last Admin: 10/26/25 05:57 Dose: 20 mg Documented By: LISBETH Prednisone (Prednisone 20 Mg Tablet) 40 mg PO DAILY [facility] Last Admin: 10/26/25 09:32 Dose: 40 mg Documented By: SALTY Simethicone (Simethicone 80 Mg Tab.Chew) 80 mg PO QIDWMHS PRN PRN Reason: Gas Sodium Chloride (0.9 % Sodium Chloride Flush 3 Ml Syringe) 3 ml IVFLUSH QSHIFT [facility] Last Admin: 10/26/25 09:33 Dose: 3 ml Documented By: SALTY Labs 10/26/25 06:44 10/26/25 06:44 Labs: Laboratory Results - last 24 hr 10/20/25 10/21/25 10/26/25 16:51 18:15 06:44 MCV 88.4 MCH 28.4 MCHC 32.1 RDW 14.8 Plt Count 359 D MPV 9.4 Absolute Nucleated RBC 0.000 Nucleated RBC % (auto) 0.0 Anion Gap 9 L Estim Creat Clear Calc 114.5 Estimated GFR > 60 Random Glucose 81 Calcium 8.5 Magnesium 2.3 Total Bilirubin 0.5 Direct Bilirubin 0.2 AST 32 H ALT 35 H Alkaline Phosphatase 60 Total Protein 5.7 L Albumin 3.3 L Ur L.pneumophila Ag Not Detected TB Test (T-Spot) Com TNP TB Test Nil Control TNP TB Test Panel A TNP TB Test Panel B TNP TB Test Positive Cntrl TNP Microbiology Microbiology Results: Microbiology 10/23/25 10:53 Blood Culture - Preliminary Blood - Venous No growth after 48 hours. 10/23/25 10:53 Blood Culture - Preliminary Blood - Venous No growth after 48 hours. Assessment and Plan (1) Sepsis: Status: Acute Plan 64F PMH COPD presented with sob sepsis and acute hypoxic respiratory failure due to strep pneumoniae pneumonia with pneumococal bacteremia ceftriaxone, azithro, wean o2 (still desatting on ambulation) acute systolic chf ef 45-50%, outpatient follow up copd with acute decompensation steroids, nebs pafib cardizem, eliquis dvt prophylaxis - eliquis full code reason for continued hospitalization:hypoxia Quality Stroke Does the patient have a stroke diagnosis?: No VTE Prior VTE?: No VTE Risk Level:: Medical - moderate - high VTE Device Contraindication: N/A - Device Ordered VTE Drug Contraindication: N/A - Med Ordered
[2025-10-26 11:36] VITALS: BP 147/83; PULSE 90; RESP 16; TEMP 36.4; O2SAT 92
--- NOTE | 2025-10-26 13:38 | PM.DS ---
DS: Providers Provider Date of admission: 10/19/25 16:39 Date of discharge: 10/26/25 Primary care physician: None Physician Consults: 10/20/25 04:48 Consult to Cardiology Routine Consulting Provider: [facility] Reason for consultation: AFIB RVR Has provider been notified: No 10/20/25 09:31 Consult to Infectious Diseases Routine Consulting Provider: [facility] Reason for consultation: Bacteremia Has provider been notified: No DS: Diagnosis Discharge Diagnosis (1) Sepsis: Status: Acute DS: Summary Hospital Course Hospital Course: from initial hpi: 64-year-old female visiting from [place] who presents to the emergency department with shortness of breath. Patient is [place] speaking and history was obtained with the use of the [employer] [place]. Patient reports she came from [place] to visit this past Thursday. She has been having shortness of breath for the past several days. She thinks that her grandchild may have the flu. She has been wheezing and reports a cough productive of dark phlegm. She has been using her inhaler with no significant improvement in her symptoms. She reports increase in fatigue but denies any associated fever or chills. In the emergency department she was tachycardic and tachypneic. Lab work was significant for elevated white blood cell count and lactic acidosis. CTA showed evidence of multifocal pneumonia but no evidence of pulmonary embolism. She was noted to become significantly tachycardic and received multiple doses of IV Cardizem. During her episodes of tachycardia she was reportedly fatigued and dizzy. Her dizziness has since resolved, she denies chest pain or palpitations at this time. She was also treated with IV antibiotics and IVF will be admitted for further management. hospital course: Patient was admitted for sepsis and acute hypoxic respiratory failure due to streptoococcus pneumonia pneumonia with bacteremia. She was treated with ceftriaxone azithromycin. Sepsis and hypoxia resolved. On discharge, she will continue 7 more days p.o. Ceftin. For acute systolic CHF with EF of 45-50% she will follow up with Cardiology as outpatient. She is not in any fluid overload. For COPD with acute decompensation was treated with steroids and nebulizers. For paroxysmal AFib was started on diltiazem and Eliquis. Patient is feeling better and she will be discharged home. Time Attestation Discharge Coordination Time (in mins): 33 Quality: Safe Use of Opioids Does Pt have an Active Cancer Diagnosis on the Problem List?: No Quality: Stroke Does the patient have a stroke diagnosis?: No Physical Exam Exam: Exam: General: AO X 3, no acute distress Resp: CTA bilateral, no accessory muscles used CVS: S1,S2,RRR GI: soft, non tender, non distended Neuro: motor grossly intact, alert Psych: appropriate affect, appropriate insight Vital Signs: Vital Signs: Last Vital Signs Temp 97.5 F 10/26/25 11:36 Pulse 90 10/26/25 11:36 Resp 16 10/26/25 11:36 BP 147/83 H 10/26/25 11:36 Pulse Ox 92 10/26/25 11:36 O2 Del Method Room Air 10/26/25 11:36 O2 Flow Rate 2 10/26/25 07:42 BMI result Body Mass Index 29.7 DS: Data Data Completed and Pending Labs on day of discharge: Laboratory Results - last 24 hr 10/20/25 10/21/25 10/26/25 16:51 18:15 06:44 WBC 11.9 H RBC 4.83 Hgb 13.7 Hct 42.7 MCV 88.4 MCH 28.4 MCHC 32.1 RDW 14.8 Plt Count 359 D MPV 9.4 Absolute Nucleated RBC 0.000 Nucleated RBC % (auto) 0.0 Sodium 139 Potassium 3.7 Chloride 99 Carbon Dioxide 35 H Anion Gap 9 L BUN 11 Creatinine 0.49 L Estim Creat Clear Calc 114.5 Estimated GFR > 60 Random Glucose 81 Calcium 8.5 Magnesium 2.3 Total Bilirubin 0.5 Direct Bilirubin 0.2 AST 32 H ALT 35 H Alkaline Phosphatase 60 Total Protein 5.7 L Albumin 3.3 L Ur L.pneumophila Ag Not Detected TB Test (T-Spot) Com TNP TB Test Nil Control TNP TB Test Panel A TNP TB Test Panel B TNP TB Test Positive Cntrl TNP Preliminary micro results at discharge 10/23/25 10:53 Blood Culture - Preliminary Blood - Venous No growth after 48 hours. 10/23/25 10:53 Blood Culture - Preliminary Blood - Venous No growth after 48 hours. 10/21/25 Unknown Acid Fast Bacilli Culture & Smear - Preliminary Sputum - Expectorated Discharge Plan Discharge Anticipated Discharge Date/Time: 10/26/25 13:18 Patient Disposition: Home, Self-Care Discharge Diagnosis: pna Referrals: Physician,None [Primary Care Provider, Medical] - 1 Week Discharge Medications: New cefuroxime axetil 500 mg tablet 500 mg PO BID Qty: 14 0RF diltiazem HCl [Cardizem CD] 120 mg Capsule,Extended Release 24hr 120 mg PO DAILY Qty: 90 0RF Protocol: Hold for SBP/HR < HOLD for SBP < : 90 HOLD for HR < : 60 Eliquis 5 mg Tablet 5 mg PO BID Qty: 180 0RF Continued Stiolto Respimat 2.5-2.5 mcg/actuation Mist 2 puff INHALATION DAILY Qty: 1 0RF Discontinued bisoprolol fumarate 2.5 mg Tablet 2.5 mg PO DAILY Discharge Orders: Discharge Order (Routine); Ordered 10/26/25 Ordered By: Mike Pinzon Diet: Advance to usual diet Activity on Discharge: As tolerated Stand Alone Forms: Patient Portal Discharge page Print Language: [place] Care Plan Goals: recovery Health Concerns: pna Plan of Treatment: 7 more days ceftin Assessment: see above
--- NOTE | 2025-10-26 13:49 | MHC.CM.PN ---
Pt. has been medically cleared to [place], she will go home via private transport, plan is self care.
[2025-10-26 21:38] LABS: Histoplasma capsulatum H Ab Negative (Negative); Histoplasma capsulatum M Ab Negative (Negative)
[2025-10-31 09:39] LABS: Blastomyces Ab ID NEGATIVE
== END 2025-10-26 15:20 | disposition home or self-care (01) | DRG 871 ==
LOC: HO.ED 15:49 → HO.EDOVER 16:45 → HO.IMC 10-20 14:07
PROVIDERS: Internal Medicine; Nurse Practitioner Family; Physician Assistant Medical; Admitting Provider Physician Assistant Medical; Emergency Provider Student in an Organized Health Care Education/Training Program; Visit Provider Internal Medicine
DX: A41.9 Sepsis, unspecified organism (principal); I50.21 Acute systolic (congestive) heart failure; J13 Pneumonia due to Streptococcus pneumoniae; J96.01 Acute respiratory failure with hypoxia; J44.0 Chronic obstructive pulmonary disease with (acute) lower respiratory infection; J44.1 Chronic obstructive pulmonary disease with (acute) exacerbation; E87.21 Acute metabolic acidosis; I48.0 Paroxysmal atrial fibrillation; Z87.891 Personal history of nicotine dependence; Z20.822 Contact with and (suspected) exposure to COVID-19; Z79.899 Other long term (current) drug therapy
CPT/HCPCS: 36415; 71046; 71275; 80048; 80076; 80202; 81001; 82565; 83605; 83735; 84443; 84484; 84520; 85007; 85027; 86403; 86481; 86612; 86698; 86803; 87040; 87077; 87116; 87205; 87206; 87389; 87449; 87564; 87637; 87899; 93005; 93306; 94640; 99285; J0616; J0696; J1163; J1650; J1956; J2919; J3373; J3374; J3475; J7120; Q9957; Q9967

== ENCOUNTER → 2025-10-19 11:05 | Outpatient (BNV) | payer OTHER, SELFPAY | PROVIDERS: Emergency Provider Student in an Organized Health Care Education/Training Program; Visit Provider Internal Medicine Cardiovascular Disease | DX: R00.0 Tachycardia, unspecified (principal); I49.3 Ventricular premature depolarization | CPT/HCPCS: 93010 ==

== ENCOUNTER → 2025-10-19 11:06 | Outpatient (BNV) | payer OTHER, SELFPAY | PROVIDERS: Emergency Provider Student in an Organized Health Care Education/Training Program; Visit Provider Radiology Diagnostic Radiology | DX: J18.9 Pneumonia, unspecified organism (principal); J43.9 Emphysema, unspecified; R59.0 Localized enlarged lymph nodes; K76.0 Fatty (change of) liver, not elsewhere classified | CPT/HCPCS: 71046; 71275 ==

== ENCOUNTER 2025-10-19 16:39 | Outpatient (BNV) | payer OTHER, SELFPAY | END 2025-10-20 04:36 | PROVIDERS: Admitting Provider Physician Assistant Medical; Emergency Provider Student in an Organized Health Care Education/Training Program; Visit Provider Internal Medicine Cardiovascular Disease | DX: I48.91 Unspecified atrial fibrillation (principal); I45.10 Unspecified right bundle-branch block; I49.1 Atrial premature depolarization | CPT/HCPCS: 93010; 93306 ==

== ENCOUNTER → 2025-10-19 16:39 | Outpatient (BNV) | payer OTHER, SELFPAY | PROVIDERS: Admitting Provider Physician Assistant Medical; Emergency Provider Student in an Organized Health Care Education/Training Program; Visit Provider Internal Medicine | DX: J18.9 Pneumonia, unspecified organism (principal) | CPT/HCPCS: 99222; 99232 ==

== ENCOUNTER → 2025-10-19 16:39 | Outpatient (BNV) | payer OTHER, SELFPAY | PROVIDERS: Admitting Provider Physician Assistant Medical; Emergency Provider Student in an Organized Health Care Education/Training Program; Visit Provider Nurse Practitioner Family | DX: I48.91 Unspecified atrial fibrillation (principal); J18.9 Pneumonia, unspecified organism; A41.9 Sepsis, unspecified organism; R65.20 Severe sepsis without septic shock | CPT/HCPCS: 99223; 99232; 99499 ==

== ENCOUNTER → 2025-10-19 16:39 | Outpatient (BNV) | payer OTHER, SELFPAY | PROVIDERS: Admitting Provider Physician Assistant Medical; Emergency Provider Student in an Organized Health Care Education/Training Program; Visit Provider Internal Medicine Cardiovascular Disease | DX: I48.91 Unspecified atrial fibrillation (principal) | CPT/HCPCS: 99222 ==